=== PATIENT | male | born 1960 | race Caucasian/White ===

== ENCOUNTER 2021-01-28 17:23 | Emergency (ER) | payer OTHER, SELFPAY ==
[2021-01-28] VITALS (7 sets, daily range): BP systolic 123–172; BP diastolic 82–108; PULSE 74–80; RESP 16–21; TEMP 36.5–36.7; O2SAT 95–98
--- NOTE | ~2021-01-28 | CT_ITS ---
EXAMINATION: CT brain wo con EXAM DATE: 01/28/2021 17:56 INDICATION: Headache. Ringing in ears. Nosebleed last week. TECHNIQUE: Spiral CT of the head was performed without contrast. Axial, coronal and sagittal images were reviewed. The dose-length product (DLP) for this examination was 681.00 mGy-cm. The exposure w as tailored according to patient size, and iterative reconstruction (ASIR) was used as additional dos e reduction technique. There is no prior study for comparison. FINDINGS: There is no acute intraparenchymal hemorrhage. No evidence of intraparenchymal brain mass lesion. No evidence of acute infarction. There is no mass effect or midline shift. The ventricles are normal in size. There are no extra-axial collections. There are no acute calvarial fractures. T he orbits are unremarkable. Soft tissue is unremarkable. The visualized sinuses and mastoid air chente ls are well aerated. IMPRESSION: 1. No acute intracranial findings. Reviewed, dictated and finalized at [facility]. WORKER
--- NOTE | 2021-01-28 17:34 | ECG_ITS ---
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
--- NOTE | 2021-01-28 17:36 | ED.HA ---
HPI - Headache General Chief Complaint: Headache Stated Complaint: headache - htn Time Seen by Provider: 01/28/21 17:32 Source: patient Mode of arrival: ambulatory Limitations: no limitations History of Present Illness HPI Narrative: Patient is a 60-year-old male complaining of a headache, top of my head , 5 out of 10, dull, nonradiating accompanied by elevated blood pressure started today. Pt states that when his checked his bp at home it was 180/100's , denies any h/o HTN. Patient denies any speech or visual disturbance, focal weakness or numbness, unsteady gait, neck pain or stiffness, chest pain, shortness of breath, abdominal pain, nausea, vomiting, diarrhea, fever, or chills. Related Data Allergies Allergy/AdvReac Type Severity Reaction Status Date / Time methylprednisolone Allergy Unknown Unknown Verified 01/28/21 18:31 Penicillins Allergy Unknown Unknown Verified 01/28/21 18:31 Review of Systems Review of Systems: All systems reviewed & are unremarkable except as noted in HPI and below Constitutional: Constitutional: Denies body ache(s), Denies chills, Denies excessive sweating, Denies fatigue, Denies fever(s), Denies headache(s), Denies lethargy, Denies malaise, Denies weakness and Denies weight loss Eyes: Eyes: Denies blurry vision, Denies change in vision and Denies loss of vision ENT: Denies dizziness, Denies ear discharge, Denies lip swelling, Denies epistaxis, Denies nasal congestion, Denies neck pain, Denies throat swelling and Denies tongue swelling Cardiovascular: Cardiovascular: Denies chest pain, Denies chest pain at rest, Denies chest pain with activity, Denies diaphoresis, Denies rapid heart rate, Denies edema, Denies irregular heart rhythm, Denies lightheadedness, Denies palpitations, Denies dyspnea and Denies dyspnea on exertion Respiratory: Respiratory: Denies chest congestion, Denies cough, Denies hemoptysis, Denies dyspnea and Denies dyspnea on exertion Gastrointestinal: Gastrointestinal: Denies abdominal pain, Denies melena, Denies hematochezia, Denies diarrhea, Denies nausea, Denies vomiting and Denies hematemesis Musculoskeletal: Musculoskeletal: Denies abnormal gait, Denies deformity, Denies joint swelling, Denies limited range of motion, Denies neck pain and Denies numbness Neurologic: Denies Abnormal speech present, Denies abnormal gait, Denies confusion, Denies dizziness, Denies focal weakness, Denies loss of vision, Denies numbness, Denies Other visual disturbances, Denies Sensory deficit (Neuro) and Denies weakness Psychiatric: Psychiatric: Denies confusion, Denies depression, Denies auditory hallucinations, Denies homicidal ideation and Denies suicidal ideation Endocrine: Endocrine: Denies cold intolerance, Denies excessive sweating, Denies fatigue, Denies heat intolerance and Denies palpitations Hematologic/Lymphatic: Hematologic/Lymphatic: Denies easy bleeding and Denies easy bruising Allergic/Immunologic: Allergic/Immunologic: Denies lip swelling, Denies throat swelling and Denies tongue swelling PMFSH Family History Family History Mother Family history of chronic obstructive pulmonary disease Father Carcinoma of colon Family history of malignant neoplasm of esophagus Other Diabetes mellitus Family history of coronary artery disease Social History Social History Smoking status: Never smoker Exam Const: General: cooperative, healthy appearing, comfortable, no acute distress, well developed, alert and awake; No confusion Orientation/consciousness: oriented to person, oriented to place, oriented to time, patient oriented x3 and No confusion Limitations: no limitations HENMT: Head: normal to inspection, normocephalic and atraumatic Ears: hearing grossly normal bilaterally, TM normal on the right and TM normal on the left General nose exam: Normal external nose present,
[2021-01-28 17:57] LABS: Basophils Percent Auto 0.7 % (0.2-1.2); Eosinophils Absolute Auto 0.4 K/mm3 (0-0.3); Eosinophils Percent Auto 6.3 % (0-4.4); Hematocrit 44.6 % (42.0-52.0); Hemoglobin 15.5 g/dL (14.0-18.0); Immature Granulocyte Absolute 0.01 K/mm3 (0.00-0.031); Immature Granulocyte Percent A 0.2 % (0-0.5); Lymphocytes Absolute Auto 1.28 K/mm3 (0.9-3.2); Lymphocytes Percent Auto 23.1 % (18.3-44.2); Mean Corpuscular HGB Conc 34.8 g/dl (32-36); Mean Corpuscular Hemoglobin 30.9 pg (26-34); Mean Corpuscular Volume 88.8 fl (80-100); Mean Platelet Volume 10.2 fl (7.4-10.4); Monocytes Absolute Auto 0.7 K/mm3 (0.1-0.6); Monocytes Percent Auto 12.1 % (2.6-8.5); Neutrophils Absolute Auto 3.2 K/mm3 (1.3-6.7); Neutrophils Percent Auto 57.6 % (45.5-73.1); Platelet Count Result 193 k/mm3 (150-375); Red Blood Count 5.02 M/mm3 (4.6-6.20); Red Cell Distribution Width 12.2 % (11.5-14.5); White Blood Count 5.5 K/mm3 (4.5-10.0)
[2021-01-28 18:09] LABS: Alanine Aminotransferase 23 U/L (4-50); Albumin Level 3.9 g/dL (3.5-5.1); Alkaline Phosphatase 68 U/L (38-126); Anion Gap 4 mmol/L (8-16); Aspartate Amino Transferase 28 U/L (17-59); Bilirubin,Total 0.6 mg/dL (0.2-1.3); Blood Urea Nitrogen 18 mg/dL (9-20); Calcium 8.4 mg/dL (8.4-10.2); Carbon Dioxide 30 mmol/L (22-30); Chloride 104 mmol/L (98-107); Estimated CRCL calculation 116 ml/min; Estimated Glomerular Filt Rate > 60; Glucose 100 mg/dL (75-110); Potassium 4.2 mmol/L (3.4-5.0); Sodium 138 mmol/L (137-145)
--- NOTE | 2021-01-28 18:15 | PC.NURSE ---
Pt states upon return from CT that his headache is gone at present time. Continue to monitor BP, preparing to give meds po for htn.
[2021-01-28] MEDS: LABETALOL HCL INJ 100 MG/20 ML VIAL 20 MG IV PUSH (18:19)
[2021-01-28 18:21] LABS: Troponin I < 0.012 ng/mL (0.000-0.034)
--- NOTE | 2021-01-28 19:17 | PC.NURSE ---
Report to KARY Calderon, to continue care.
== END 2021-01-28 19:48 | disposition home or self-care (01) ==
PROVIDERS: Emergency Provider Emergency Medicine; PCP Family Medicine
DX: I16.0 Hypertensive urgency (principal); R94.31 Abnormal electrocardiogram [ECG] [EKG]
CPT/HCPCS: 36415; 70450; 80053; 84484; 85025; 93005; 96374; 99284

== ENCOUNTER 2021-03-10 15:06 | Emergency (ER) | payer OTHER, SELFPAY ==
--- NOTE | ~2021-03-10 | CT_ITS ---
EXAMINATION: CT abdomen pelvis w con DATE: 03/10/2021 19:06 INDICATION: Left lower quadrant pain TECHNIQUE: Computed tomography (CT) of the abdomen and pelvis was performed with 100 cc Omnipaque 350 intravenous contrast. Automated exposure control and iterative reconstruction technique were employe d. Exam dose: 1377.25 mGy-cm total exam DLP. COMPARISON: None. FINDINGS: The lung bases are clear of infiltrate or consolidation. Normal heart size. No pericardial or pleural effusion. Small sliding hiatal hernia. No hepatic space-occupying mass lesion. The gallbladder is present. No gallbladder wall thickening or pericholecystic fluid or fat stranding. No bile duct dilatation. No pancreatic mass lesion, calcific ation or ductal dilatation. Normal splenic size. Normal morphology of the adrenal glands. Exophytic posterior mid 2.4 cm right renal cyst. Upper pole left renal scarring. 4 mm lateral lower pole left renal cyst. No urinary tract calculus or hydroureteronephrosis. There is nonspecific moderate diffuse thickening of the urinary bladder wall may be due to underdistention. Mild prostate enlargement, prostate calcifications. Small bilateral fat-containing inguinal hernias. Normal caliber of the abdominal aorta. No intraperitoneal or retroperitoneal or pelvic mass lesion or adenopathy or ascites is evident. 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 No evidence of appendicitis. No bowel obstruction, bowel wall thickening, pneumatosis. No intraperitonea l free air. There is prominent degenerative disc disease L4-5 and L5-S1. No suspicious osteolytic or osteoblastic lesions. 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 Reviewed, dictated and finalized at [facility]. 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
[2021-03-10 15:17] VITALS: BP 110/78; PULSE 107; RESP 20; TEMP 36.4; O2SAT 97
[2021-03-10 15:28] LABS: Basophils Absolute Auto 0.1 K/mm3 (0.0-0.1); Basophils Percent Auto 0.7 % (0.2-1.2); Eosinophils Absolute Auto 7.9 K/mm3 (0-0.3); Eosinophils Percent Auto 45.2 % (0-4.4); Hematocrit 48.4 % (42.0-52.0); Hemoglobin 17.4 g/dL (14.0-18.0); Immature Granulocyte Absolute 0.09 K/mm3 (0.00-0.031); Immature Granulocyte Percent A 0.5 % (0-0.5); Lymphocytes Percent Auto 12.6 % (18.3-44.2); Mean Corpuscular Hemoglobin 31.5 pg (26-34); Mean Corpuscular Volume 87.5 fl (80-100); Mean Platelet Volume 10.5 fl (7.4-10.4); Monocytes Percent Auto 5.7 % (2.6-8.5); Neutrophils Absolute Auto 6.2 K/mm3 (1.3-6.7); Neutrophils Percent Auto 35.3 % (45.5-73.1); Platelet Count Result 213 k/mm3 (150-375); Red Blood Count 5.53 M/mm3 (4.6-6.20); Red Cell Distribution Width 12.3 % (11.5-14.5); White Blood Count 17.5 K/mm3 (4.5-10.0)
[2021-03-10 15:38] LABS: Potassium 4.1 mmol/L (3.4-5.0)
[2021-03-10 15:45] LABS: Alanine Aminotransferase 41 U/L (4-50); Albumin Level 4.7 g/dL (3.5-5.1); Alkaline Phosphatase 119 U/L (38-126); Anion Gap 11 mmol/L (8-16); Aspartate Amino Transferase 36 U/L (17-59); Bilirubin,Total 0.8 mg/dL (0.2-1.3); Blood Urea Nitrogen 23 mg/dL (9-20); Calcium 9.5 mg/dL (8.4-10.2); Carbon Dioxide 21 mmol/L (22-30); Chloride 101 mmol/L (98-107); Estimated CRCL calculation 70 ml/min; Estimated Glomerular Filt Rate 52; Glucose 90 mg/dL (75-110); Lipase 111 U/L (23-300); Sodium 133 mmol/L (137-145)
--- NOTE | 2021-03-10 18:39 | ED.GENADULT ---
HPI - General Adult General Chief complaint: Nausea/Vomiting/Diarrhea Stated complaint: diarrhea x8 days Time Seen by Provider: 03/10/21 18:28 Source: patient Mode of arrival: ambulatory Limitations: no limitations History of Present Illness HPI narrative: Patient is a 60-year-old male who presents to emergency department for evaluation of diarrhea and abdominal pain for over a week began after eating fast food patient notes up to 10-12 loose stools per day denies rectal bleeding or melena or similar occurrence in the past patient 3 days ago had Cipro and Flagyl called in by his primary care but has not started taking them patient has some aching pain in the left lower abdomen and on arrival does not appear distressed Related Data Allergies Allergy/AdvReac Type Severity Reaction Status Date / Time methylprednisolone Allergy Unknown Unknown Verified 03/10/21 18:28 Penicillins Allergy Unknown Unknown Verified 03/10/21 18:28 Review of Systems Review of Systems: All systems reviewed & are unremarkable except as noted in HPI and below PMFSH Past Medical History Medical History BMI 39.0-39.9,adult Chronic neck pain Colon cancer screening Diarrhea Encounter for prostate cancer screening Encounter for wellness examination in adult Essential (primary) hypertension Gastroenteritis Hypertension Mixed hyperlipidemia Testicular pain, left Surgical History Surgical History H/O hernia repair (~04/13/15) Family History Family History (Updated 02/16/21 @ 14:08 by Melissa Clay MA) Mother Family history of chronic obstructive pulmonary disease Father Carcinoma of colon Family history of malignant neoplasm of esophagus Sibling , 47 y/o Brain aneurysm Other Diabetes mellitus Family history of coronary artery disease Social History Social History Smoking status: Never smoker Alcohol intake: current Drinks per week: 6 Substance use: former Substance use type: marijuana Exam Narrative: Exam Narrative: GENERAL: Well-appearing, obese, and in no acute distress. HEAD: Normocephalic, atraumatic. EYES: PERRLA and EOMI. ENT: Nares clear, no rhinorrhea or epistaxis. Mucous membranes moist. CHEST: Clear to auscultation. No respiratory distress. No wheezes rales or rhonchi HEART: Regular rate and rhythm. No murmur heard. Normal peripheral pulses. ABDOMEN: Soft, left lower quadrant tenderness to palpation no rebound or guarding, nondistended EXTREMITIES: Normal range of motion. No edema. SKIN: Warm, dry, no rash. NEURO: No focal deficits. Alert and oriented x3. PSYCH: Normal mood and affect. Course Course Emergency Course: Patient evaluated for diarrhea had stool cultures performed advised to take the antibiotics his primary care prescribed as recommended by primary care will also be given GI referral patient was given 2 L of fluids in the emergency department for hydration given instructions on hydrating and will be discharged home at this time with follow-up with primary care and gastroenterology will be swabbed for Covid as well patient aware of his findings treatment plan agrees with this and will also return if symptoms worsen and was provided with reasons to return Consultations Consultation #1: Discussed case with Dr. Sifuentes who will follow patient in clinic agrees with GI referral and Covid testing and would like the patient to take his prescribed medications in the meantime as we wait for results Date: 03/10/21 Time: 20:23 Vital Signs Vital signs: Vital Signs Temperature 97.6 F 03/10/21 15:17 Pulse Rate 107 H 03/10/21 15:17 Respiratory Rate 20 03/10/21 15:17 Blood Pressure 110/78 03/10/21 15:17 Pulse Oximetry 97 03/10/21 15:17 Temperature 97.6 F 03/10/21 15:17 Pulse Rate 107 H 03/10/21 15:17 Respir
[2021-03-10] MEDS: SODIUM CHLORIDE 0.9% IV 1,000 ML 999 ML IV CONT ×2 (18:51→20:08)
[2021-03-10] MEDS: FAMOTIDINE 20 MG/2 ML VIAL IV PUSH (18:53)
--- NOTE | 2021-03-10 18:57 | PC.NURSE ---
Pt to CT via stretcher at this time.
[2021-03-10] MEDS: HYOSCYAMINE SULFATE 0.125 MG TABLET PO (19:24)
[2021-03-10 19:31] LABS: Add Urine Microscopic? YES; Appearance Urine Cloudy (Clear); Bilirubin Urine Negative (Negative); Blood Urine Negative (Negative); Color Urine Yellow (Yellow); Glucose Urine UA Negative (Negative); Ketones Urine Trace mg/dL (Negative); Leukocyte Esterase Ur 1+ LEU/UL (Negative); Mucus Urine Rare /lpf; Nitrate Urine Negative (Negative); Protein Urine 1+ mg/dL (Negative); RBC Urine 0-2 /hpf (0-2); Specific Grav Ur 1.012 (1.001-1.035); Urobilinogen Urine Negative mg/dL (<2.0); WBC Urine 0-3 /hpf
--- NOTE | 2021-03-10 19:32 | PC.NURSE ---
Assumed care of pt. at this time. Report from KARY Fung
--- NOTE | 2021-03-10 20:00 | PC.NURSE ---
pt. to bathroom to provide stool sample.
--- NOTE | 2021-03-10 20:10 | PC.NURSE ---
pt. stool specimen walked to lab
[2021-03-10 21:05] VITALS: BP 136/91; PULSE 86; RESP 20; O2SAT 100
[2021-03-11 17:42] LABS: SARS-CoV-2 RNA PCR Negative
== END 2021-03-10 21:05 | disposition home or self-care (01) ==
PROVIDERS: Emergency Medicine Emergency Medical Services; Emergency Provider Emergency Medicine; PCP Family Medicine
DX: R19.7 Diarrhea, unspecified (principal); Z20.822 Contact with and (suspected) exposure to COVID-19; I10 Essential (primary) hypertension; E78.2 Mixed hyperlipidemia; K44.9 Diaphragmatic hernia without obstruction or gangrene; N28.1 Cyst of kidney, acquired; K40.90 Unilateral inguinal hernia, without obstruction or gangrene, not specified as recurrent; N40.0 Benign prostatic hyperplasia without lower urinary tract symptoms; Q43.3 Congenital malformations of intestinal fixation
CPT/HCPCS: 36415; 74177; 80053; 81001; 83690; 85025; 87045; 87046; 87324; 87427; 96361; 96365; 96375; 99284; A9270; C9803; J0131; J7030; Q9967; U0003; U0005

== ENCOUNTER → 2021-04-05 02:30 | Outpatient (CLI) | payer OTHER, SELFPAY ==
[2021-04-05 19:19] LABS: SARS-CoV-2 RNA PCR Negative
== END ==
PROVIDERS: PCP Family Medicine; Visit Provider Internal Medicine Gastroenterology
DX: Z01.812 Encounter for preprocedural laboratory examination (principal); Z20.822 Contact with and (suspected) exposure to COVID-19
CPT/HCPCS: C9803; U0003; U0005

== ENCOUNTER 2021-04-08 00:21 | Day surgery (SDC) | payer OTHER, SELFPAY ==
[2021-03-31 11:40] VITALS: BMI 39.3
[2021-04-08 09:00] VITALS: BP 114/88; PULSE 79; RESP 18; TEMP 36.2; O2SAT 96; BMI 37.3
--- NOTE | 2021-04-08 09:05 | WPDANESEPPF ---
Anes - Initial Pre Proc Eval Procedure: Operation Date: 04/08/21 10:15 Proposed Procedures p Colonoscopy - Fran Rhodes MD Date/Time: 04/08/21 09:05 Surgeon: Fran Rhodes MD Pre Op Diagnosis: diarrhea Patient Data Age: 60 Gender: M Height: 5 ft 11 in Weight: 121.3 kg Last Vital Signs Temp 36.2 C L 04/08/21 09:00 Pulse 79 04/08/21 09:00 Resp 18 04/08/21 09:00 BP 114/88 04/08/21 09:00 Pulse Ox 96 04/08/21 09:00 Allergies Allergy/AdvReac Type Severity Reaction Status Date / Time methylprednisolone Allergy Severe Unknown Verified 04/08/21 08:58 Penicillins Allergy Other Verified 04/08/21 09:03 Home Medications Medication Instructions Recorded Confirmed Type lisinopril 20 mg tablet 20 mg PO DAILY #30 tablet 02/16/21 04/08/21 Rx Saccharomyces boulardii [Florastor] 250 mg PO BID 03/31/21 04/08/21 History mv-mn no.31-uxjna-onzns-lutein 1 tablet PO DAILY 03/31/21 04/08/21 History [Neovite] Patient hx anesthesia problems: none Family hx anesthesia problems: none PMFSH Past Medical History Medical History BMI 39.0-39.9,adult Chronic neck pain Colon cancer screening Diarrhea Encounter for prostate cancer screening Encounter for wellness examination in adult Essential (primary) hypertension Gastroenteritis Hypertension Mixed hyperlipidemia Testicular pain, left Surgical History Surgical History H/O hernia repair (~04/13/15) Family History Family History Mother Family history of chronic obstructive pulmonary disease Father Carcinoma of colon Family history of malignant neoplasm of esophagus Sibling , 47 y/o Brain aneurysm Other Diabetes mellitus Family history of coronary artery disease Social History Social History Smoking status: Never smoker Alcohol intake: current Drinks per week: 6 Substance use: former Substance use type: marijuana Living arrangements: with family Spiritual care concerns: No Anes - Eval Final PreProcedure Day of Procedure 04/08/21 09:05 Patient weight: obese Heart: regular rate and rhythm Lungs: clear to auscultation Airway: Mallampati scale class II Neurological: alert and oriented Last oral intake: >/= 8 hours ASA classification: III Emergent: no Anesthetic plan: proceed Anesthesia type and monitoring: general GIVS and standard monitoring Informed Consent: The patient's anesthetic plan and its attendant risks and benefits were discussed with the patient/family/POA. Questions were solicited and answers provided to the satisfaction of the patient/family/POA.
[2021-04-08] MEDS: LACTATED RINGERS 1,000 ML 150 ML IV CONT (09:09)
--- NOTE | 2021-04-08 10:00 | WPDGICN ---
Assessment and Plan Assessment and plan (1) Diarrhea: Code(s): R19.7 - Diarrhea, unspecified Status: Acute Assessment and Plan: Patient complains of ongoing diarrhea which may represent postinfectious irritable bowel syndrome. Agree with probiotics. We will add fiber to his diet region. Colonoscopy to exclude organic disease is advised. Further recommendations will be given after endoscopy. 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 That is should be noted in his history. GI Consult Note Consult date/time: 04/08/21 10:00 HPI: Tate Woods is a 60 year old male Presents for colonoscopy to evaluate diarrhea. Patient reports abrupt onset of diarrhea that began March 02 after travel. He describes rather profuse watery stools. He was treated with several rounds of broad-spectrum antibiotics. Diarrhea however persisted but to a lesser degree. Recently seen by PA in the GI office period and started on probiotics. Patient has noticed improved diarrhea stool periods now he will have formed stools and perhaps watery stool every 3rd day. He denies any bleeding. Denies any abdominal pain. He denies any weight loss. Patient reports last colonoscopy for screening purposes 5 years ago was unremarkable. 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 His family history is significant that his father had metastatic cancer of uncertain primary apparently tumor was involving both the chest the esophagus and intra-abdominal areas when identified. Primary site was never determined. Review of Systems Review of Systems: All systems reviewed & are unremarkable except as noted in HPI and below PMFSH Past Medical History Medical History BMI 39.0-39.9,adult Chronic neck pain Colon cancer screening Diarrhea Encounter for prostate cancer screening Encounter for wellness examination in adult Essential (primary) hypertension Gastroenteritis Hypertension Mixed hyperlipidemia Testicular pain, left Surgical History Surgical History H/O hernia repair (~04/13/15) Family History Family History Mother Family history of chronic obstructive pulmonary disease Father Carcinoma of colon Family history of malignant neoplasm of esophagus Sibling , 47 y/o Brain aneurysm Other Diabetes mellitus Family history of coronary artery disease Social History Social History Smoking status: Never smoker Alcohol intake: current Drinks per week: 6 Substance use: former Substance use type: marijuana Living arrangements: with family Spiritual care concerns: No Meds Home Medications and Allergies Home Medications Medication Instructions Recorded Confirmed Type lisinopril 20 mg tablet 20 mg PO DAILY #30 tablet 02/16/21 04/08/21 Rx Saccharomyces boulardii [Florastor] 250 mg PO BID 03/31/21 04/08/21 History mv-mn no.77-jmpbf-gesul-lutein 1 tablet PO DAILY 03/31/21 04/08/21 History [Neovite] Allergies Allergy/AdvReac Type Severity Reaction Status Date / Time methylprednisolone Allergy Severe Unknown Verified 04/08/21 08:58 Penicillins Allergy Other Verified 04/08/21 09:03 Vital Signs Vital Signs - 24 hr 04/08/21 09:00 Temperature 97.1 F L Pulse Rate 79 Respiratory Rate 18 Blood Pressure 114/88 Pulse Oximetry 96 Exam Narrative: Exam Narrative: Physical exam reveals patient be alert. Vital signs stable. HEENT exam is unremarkable. Patient is anicteric. Lungs are clear to auscultation and percussion. Heart is without murmur or extra sounds. Abdominal exam bowel sounds are present soft nontender with no hepatosplenomegaly. Digital external rectal exam is normal.
[2021-04-08 10:35] VITALS: BP 107/68; PULSE 74; RESP 16; O2SAT 97
[2021-04-08 10:45] VITALS: BP 115/69; PULSE 71; RESP 16; O2SAT 98
[2021-04-08 10:54] VITALS: BP 116/77; PULSE 68; RESP 16; O2SAT 98
== END 2021-04-08 11:03 | disposition home or self-care (01) ==
PROVIDERS: PCP Family Medicine; Visit Provider Internal Medicine Gastroenterology
PROC: 0DJD8ZZ Inspection of Lower Intestinal Tract, Via Natural or Artificial Opening Endoscopic (ICD-10-PCS; CPT 45378; principal; 2021-04-08 10:15)
DX: R19.7 Diarrhea, unspecified (principal); K64.8 Other hemorrhoids; I10 Essential (primary) hypertension; E78.2 Mixed hyperlipidemia; E66.9 Obesity, unspecified; Z68.37 Body mass index [BMI] 37.0-37.9, adult
CPT/HCPCS: 45380; 88305; C9803; J2704; J7120; U0003; U0005

== ENCOUNTER 2021-07-28 01:39 | Day surgery (SDC) | payer BC, SELFPAY ==
[2021-07-20 11:59] VITALS: BMI 37.3
[2021-07-28 10:09] VITALS: BP 134/94; PULSE 67; RESP 20; TEMP 36.2; O2SAT 99; BMI 36.3
--- NOTE | 2021-07-28 10:19 | WPDGICN ---
Assessment and Plan Assessment and plan (1) Epigastric abdominal pain: Code(s): R10.13 - Epigastric pain Status: Acute Assessment and Plan: Patient complains of epigastric pain today. Plan is for EGD to assess more thoroughly. He has occasionally describe dysphagia but this is less consistent. Further recommendations will be given after endoscopy. GI Consult Note Consult date/time: 07/28/21 10:19 HPI: Tate Woods is a 61 year old male Presents for EGD. Patient complains of left upper quadrant pain. It is somewhat worse on drinking cold drinks. Occurs intermittently. He states his previous diarrhea is improved on adding fiber to his diet. Advise any bleeding. He recently has had 20lb weight loss. He reports this because he has been eating more salads. Family history noncontributory. Patient presents for EGD because of persistent left upper quadrant pain. At the present time he denies any specific difficulty swallowing. Review of Systems Review of Systems: All systems reviewed & are unremarkable except as noted in HPI and below PMFSH Past Medical History Medical History (Updated 07/28/21 @ 10:20 by Fran Rhodes MD) BMI 37.0-37.9, adult BMI 39.0-39.9,adult Chronic neck pain Colon cancer screening Normal colonoscopy 04/08/2021 for evaluation of diarrhea Diarrhea Dysphagia (~07/08/21) Encounter for prostate cancer screening Encounter for wellness examination in adult Eosinophilia Essential (primary) hypertension Gastroenteritis Hypertension Mixed hyperlipidemia Testicular pain, left Surgical History Surgical History H/O hernia repair (~04/13/15) Family History Family History Mother Family history of chronic obstructive pulmonary disease Father Carcinoma of colon Family history of malignant neoplasm of esophagus Sibling , 47 y/o Brain aneurysm Other Diabetes mellitus Family history of coronary artery disease Social History Social History Smoking status: Never smoker Alcohol intake: current Drinks per week: 4 Alcohol use details: Beer Substance use: former Substance use type: marijuana Living arrangements: alone Spiritual care concerns: No Meds Home Medications and Allergies Home Medications Medication Instructions Recorded Confirmed Type lisinopril 20 mg tablet 20 mg PO DAILY #30 tablet 02/16/21 07/20/21 Rx Saccharomyces boulardii [Florastor] 250 mg PO BID 03/31/21 07/20/21 History mv-mn no.30-kzert-qoyyi-lutein 1 tablet PO DAILY 03/31/21 07/20/21 History [Neovite] calcium polycarbophil [FiberCon] 1,250 mg PO DAILY 07/20/21 07/20/21 History Allergies Allergy/AdvReac Type Severity Reaction Status Date / Time methylprednisolone Allergy Severe Unknown Verified 07/28/21 10:08 Penicillins Allergy Other Verified 07/28/21 10:08 Vital Signs Vital Signs - 24 hr 07/28/21 10:09 Temperature 97.1 F L Pulse Rate 67 Respiratory Rate 20 Blood Pressure 134/94 H Pulse Oximetry 99 Exam Narrative: Physical exam reveals patient be alert. Vital signs are stable. HEENT exam is unremarkable. Lungs are clear to auscultation and percussion. Heart is without murmur or extra sounds. Abdominal exam Is mildly obese. bowel sounds are present soft nontender with no organomegaly.
[2021-07-28] MEDS: LACTATED RINGERS 1,000 ML 150 ML IV CONT (10:24)
--- NOTE | 2021-07-28 10:30 | WPDANESEPPF ---
Anes - Initial Pre Proc Eval Procedure: Operation Date: 07/28/21 11:00 Proposed Procedures p Esophagogastroduodenoscopy - Fran Rhodes MD Date/Time: 07/28/21 10:30 Surgeon: Fran Rhodes MD Pre Op Diagnosis: R13.10 Dysphagia Patient Data Age: 61 Gender: M Height: 1.83 m Weight: 121.6 kg Last Vital Signs Temp 97.1 F L 07/28/21 10:09 Pulse 67 07/28/21 10:09 Resp 20 07/28/21 10:09 BP 134/94 H 07/28/21 10:09 Pulse Ox 99 07/28/21 10:09 Allergies Allergy/AdvReac Type Severity Reaction Status Date / Time methylprednisolone Allergy Severe Unknown Verified 07/28/21 10:08 Penicillins Allergy Other Verified 07/28/21 10:08 Home Medications Medication Instructions Recorded Confirmed Type lisinopril 20 mg tablet 20 mg PO DAILY #30 tablet 02/16/21 07/20/21 Rx Saccharomyces boulardii [Florastor] 250 mg PO BID 03/31/21 07/20/21 History mv-mn no.76-ezsyl-ozbba-lutein 1 tablet PO DAILY 03/31/21 07/20/21 History [Neovite] calcium polycarbophil [FiberCon] 1,250 mg PO DAILY 07/20/21 07/20/21 History Patient hx anesthesia problems: none Family hx anesthesia problems: none PMFSH Past Medical History Medical History (Updated 07/28/21 @ 10:20 by Fran Rhodes MD) BMI 37.0-37.9, adult BMI 39.0-39.9,adult Chronic neck pain Colon cancer screening Normal colonoscopy 04/08/2021 for evaluation of diarrhea Diarrhea Dysphagia (~07/08/21) Encounter for prostate cancer screening Encounter for wellness examination in adult Eosinophilia Essential (primary) hypertension Gastroenteritis Hypertension Mixed hyperlipidemia Testicular pain, left Surgical History Surgical History H/O hernia repair (~04/13/15) Family History Family History Mother Family history of chronic obstructive pulmonary disease Father Carcinoma of colon Family history of malignant neoplasm of esophagus Sibling , 47 y/o Brain aneurysm Other Diabetes mellitus Family history of coronary artery disease Social History Social History Smoking status: Never smoker Alcohol intake: current Drinks per week: 4 Alcohol use details: Beer Substance use: former Substance use type: marijuana Living arrangements: alone Spiritual care concerns: No Anes - Eval Final PreProcedure Day of Procedure 07/28/21 10:30 Patient weight: obese Heart: regular rate and rhythm Lungs: clear to auscultation Airway: Mallampati scale class II Neurological: alert and oriented Last oral intake: >/= 8 hours ASA classification: III Emergent: no Anesthetic plan: proceed Anesthesia type and monitoring: general GIVS and standard monitoring Informed Consent: The patient's anesthetic plan and its attendant risks and benefits were discussed with the patient/family/POA. Questions were solicited and answers provided to the satisfaction of the patient/family/POA.
[2021-07-28] MEDS: BENZOCAINE (*SP) 60 ML SPRAY CAN (HURRICAINE) 1 SPRAY MUCOUS MEM (10:59)
[2021-07-28 11:07] VITALS: BP 136/93; PULSE 65; RESP 20; O2SAT 100
[2021-07-28 11:17] VITALS: BP 125/84; PULSE 62; RESP 20; O2SAT 100
[2021-07-28 11:27] VITALS: BP 141/97; PULSE 66; RESP 20; O2SAT 99
== END 2021-07-28 11:47 | disposition home or self-care (01) ==
PROVIDERS: PCP Family Medicine; Visit Provider Internal Medicine Gastroenterology
PROC: 0DJ08ZZ Inspection of Upper Intestinal Tract, Via Natural or Artificial Opening Endoscopic (ICD-10-PCS; CPT 43235; principal; 2021-07-28 11:00)
DX: R10.12 Left upper quadrant pain (principal); R10.13 Epigastric pain; R13.10 Dysphagia, unspecified; I10 Essential (primary) hypertension; E78.2 Mixed hyperlipidemia; E66.9 Obesity, unspecified; Z68.36 Body mass index [BMI] 36.0-36.9, adult
CPT/HCPCS: 43239; 87081; J2704; J7120

== ENCOUNTER 2021-08-12 11:58 | Outpatient (RCR) | payer BC, SELFPAY ==
[2021-08-12] MEDS: diphenhydrAMINE HCl CAP 25 MG CAPSULE PO (12:10)
[2021-08-12] MEDS: ACETAMINOPHEN 325 MG TABLET 650 MG PO (12:10)
[2021-08-12] MEDS: FAMOTIDINE 20 MG TABLET PO (12:11)
[2021-08-12 12:26] VITALS: BP 125/81; PULSE 72; RESP 20; TEMP 36.4; O2SAT 98
[2021-08-12 13:48] VITALS: BP 126/82; PULSE 63; RESP 16; TEMP 36.1; O2SAT 98
--- NOTE | 2021-08-13 08:32 | PC.NURSE ---
pt was called for check in after covid infusion 08/12, pt stated he was feeling much better and had no complaints or concerns
== END 2021-08-12 15:17 | disposition home or self-care (01) ==
LOC: AMCINF 11:58
PROVIDERS: PCP Family Medicine; Referring Provider Family Medicine; Visit Provider Internal Medicine Hematology & Oncology
DX: Z23 Encounter for immunization (principal); U07.1 COVID-19; I10 Essential (primary) hypertension
CPT/HCPCS: A9270; J7050; M0243

== ENCOUNTER → 2022-08-30 13:57 | Outpatient (CLI) | payer BC, SELFPAY ==
--- NOTE | ~2022-08-30 | XR_ITS ---
XR hip RT 2V w AP pelvis 08/30/2022 14:12 Indication: Right hip pain after fall Procedure: 4 views of the right hip including AP pelvis Comparison: No prior studies for comparison. Findings: Pelvic rings are intact. Sacral foramen are symmetric. There is lower lumbar spondylosis. N o fracture or traumatic malalignment. No focal soft tissue abnormality. No foreign bodies. Impression: 1: No acute fracture. Reviewed, dictated and finalized at location A. Impression: 1: No acute fracture.
== END ==
PROVIDERS: PCP Family Medicine; Visit Provider Family Medicine
DX: M25.551 Pain in right hip (principal)
CPT/HCPCS: 73502

== ENCOUNTER → 2023-04-19 12:09 | Outpatient (CLI) | payer BC, SELFPAY ==
--- NOTE | ~2023-04-19 | XR_ITS ---
AP view of the pelvis and AP and lateral views of the right hip Clinical history: Pain Findings: No acute fracture or dislocation is seen. Osseous alignment is anatomic. Bilateral hip and SI joint spaces are preserved. Soft tissues are unremarkable. Impression: No significant abnormality is seen. Reviewed, dictated and finalized at [facility]. Impression: No significant abnormality is seen.
--- NOTE | ~2023-04-19 | XR_ITS ---
Cervical Spine: AP, lateral, open-mouth views Clinical History: Pain Findings: The normal lordotic curve is maintained. No fracture identified. 3 mm anterolisthesis of C4 over C5 present. There is mild degenerative disc narrowing throughout cervical spine. There is moder ate facet arthropathy at C4-C5 and C5-C6. Pre-vertebral soft tissues are unremarkable. Impression: [id number]-[id number] degenerative spondylosis, as above. 3 mm anterolisthesis of C4 over C5. Reviewed, dictated and finalized at [facility]. Impression: [id number] degenerative spondylosis, as above. 3 mm anterolisthesis of C4 over C5.
== END ==
PROVIDERS: PCP Family Medicine; Visit Provider Family Medicine
DX: M25.551 Pain in right hip (principal); G89.29 Other chronic pain; M47.892 Other spondylosis, cervical region
CPT/HCPCS: 72050; 73502

== ENCOUNTER 2023-05-24 14:30 | Outpatient (CLI) | payer BC, SELFPAY | END 2023-05-24 14:31 | disposition home or self-care (01) | PROVIDERS: PCP Family Medicine; Visit Provider Otolaryngology | DX: H93.11 Tinnitus, right ear (principal); H90.3 Sensorineural hearing loss, bilateral | CPT/HCPCS: 92557; 92567 ==

== ENCOUNTER 2024-05-23 19:43 | Emergency (ER) | payer OTHER, BC, SELFPAY ==
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
[2024-05-23 19:52] VITALS: BP 128/86; PULSE 96; RESP 16; TEMP 36.9; O2SAT 97
[2024-05-23] MEDS: ONDANSETRON INJ 4 MG/2 ML VIAL IV PUSH (21:51)
[2024-05-23] MEDS: MORPHINE SULFATE (*CRX) 4 MG/ML INJ IV PUSH (21:51)
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
[2024-05-23 21:58] LABS: Basophils Percent Auto 0.5 % (0.2-1.2); Eosinophils Absolute Auto 0.1 K/mm3 (0-0.3); Eosinophils Percent Auto 1.6 % (0-4.4); Hematocrit 42.1 % (42.0-52.0); Hemoglobin 14.6 g/dL (14.0-18.0); Immature Granulocyte Absolute 0.02 K/mm3 (0.00-0.031); Immature Granulocyte Percent A 0.3 % (0-0.5); Lymphocytes Absolute Auto 1.37 K/mm3 (0.9-3.2); Mean Corpuscular HGB Conc 34.7 g/dl (32-36); Mean Corpuscular Hemoglobin 30.9 pg (26-34); Mean Platelet Volume 10.7 fl (7.4-10.4); Monocytes Absolute Auto 0.9 K/mm3 (0.1-0.6); Monocytes Percent Auto 11.4 % (2.6-8.5); Neutrophils Absolute Auto 5.2 K/mm3 (1.3-6.7); Neutrophils Percent Auto 68.2 % (45.5-73.1); Platelet Count Result 204 k/mm3 (150-375); Red Blood Count 4.73 M/mm3 (4.6-6.20); White Blood Count 7.6 K/mm3 (4.5-10.0)
[2024-05-23 22:08] LABS: Alanine Aminotransferase 29 U/L (6-50); Albumin Level 4.2 g/dL (3.5-5.1); Alkaline Phosphatase 75 U/L (38-126); Anion Gap 6 mmol/L (4-12); Aspartate Amino Transferase 42 U/L (17-59); Blood Urea Nitrogen 19 mg/dL (9-20); Calcium 8.7 mg/dL (8.4-10.2); Carbon Dioxide 26 mmol/L (22-30); Chloride 107 mmol/L (98-107); Estimated CRCL calculation 94 ml/min; Estimated Glomerular Filt Rate > 60; Glucose 103 mg/dL (65-110); Potassium 3.7 mmol/L (3.4-5.0); Sodium 139 mmol/L (137-145)
[2024-05-23] MEDS: TETANUS,DIPHTHERIA,AC PERTUSSIS ADULT (0.5 ML) BOOSTRIX IM (22:42)
[2024-05-23 22:55] VITALS: BP 124/73; PULSE 79; RESP 17; O2SAT 96
[2024-05-24] MEDS: KETOROLAC 30 MG/ML VIAL (*BKC) IV PUSH (00:54)
[2024-05-24] MEDS: methocarbamoL 500 MG TABLET 1000 MG PO (00:54)
[2024-05-24] MEDS: ACETAMINOPHEN 500 MG TABLET 1000 MG PO (00:54)
== END 2024-05-24 01:05 | disposition home or self-care (01) ==
PROVIDERS: Emergency Provider Physician Assistant; PCP Family Medicine
DX: S00.03XA Contusion of scalp, initial encounter (principal); S00.01XA Abrasion of scalp, initial encounter; S20.212A Contusion of left front wall of thorax, initial encounter; S16.1XXA Strain of muscle, fascia and tendon at neck level, initial encounter; S46.912A Strain of unspecified muscle, fascia and tendon at shoulder and upper arm level, left arm, initial encounter; N28.89 Other specified disorders of kidney and ureter; Z23 Encounter for immunization; I10 Essential (primary) hypertension; E78.2 Mixed hyperlipidemia; E66.01 Morbid (severe) obesity due to excess calories; Z68.41 Body mass index [BMI] 40.0-44.9, adult; Z86.16 Personal history of COVID-19; Z79.899 Other long term (current) drug therapy; V68.5XXA Driver of heavy transport vehicle injured in noncollision transport accident in traffic accident, initial encounter
CPT/HCPCS: 36415; 70450; 71260; 72125; 72129; 72132; 73030; 74177; 80053; 85025; 90471; 90715; 96374; 96375; 99284; A4565; A9270; J1885; J2270; J2405; Q9967

== ENCOUNTER 2024-06-12 07:53 | Outpatient (CLI) | payer BC, SELFPAY ==
--- NOTE | ~2024-06-12 | MR_ITS ---
MRI of the abdomen: Clinical indication: Left renal mass. Technique: Coronal SSFSE ARC, WATER:coronal LAVA-FLEX, Coronal 2D FIESTA FatSat, Axial SSFSE BH ARC, Axial 3D DualEcho BH, Axial SSFSE-IR, Axial DWI b=500, Axial 2D FIESTA FatSat, pre and dynamic postco ntrast Axial LAVA ARC, postcontrast Coronal In and Opposed phase LAVA FLEX. Following intravenous adm inistration of 20 cc MultiHance gadolinium, T1-weighted fat-sat imaging was performed in the axial an d coronal planes. COMPARISON: CT scan dated 05/23/2024 Findings: Gallbladder is unremarkable. The common bile duct is normal in course and caliber. No filli ng defects are seen within the CBD. No evidence of intrahepatic biliary ductal dilatation. The pancre atic duct is normal in size. There is a 5.0 x 4.5 cm heterogeneous left renal mass, with solid and cystic components, and heteroge neous postcontrast enhancement of the solid components, compatible with renal cell carcinoma. Simple exophytic right renal cyst present. Liver, spleen, pancreas, and adrenal glands appear normal. The aorta and the paraaortic regions appea r normal. Impression: 5.0 x 4.5 cm heterogeneously enhancing mixed solid and cystic left renal mass, most consistent with r enal cell carcinoma. Appropriate oncologic follow-up recommended. Reviewed, dictated and finalized at location . Impression: 5.0 x 4.5 cm heterogeneously enhancing mixed solid and cystic left renal mass, most consistent with renal cell carcinoma. Appropriate oncologic follow-up r ecommended.
== END 2024-06-12 07:54 | disposition home or self-care (01) ==
PROVIDERS: PCP Family Medicine; Visit Provider Family Medicine
DX: N28.89 Other specified disorders of kidney and ureter (principal)
CPT/HCPCS: 74183; A9577

== ENCOUNTER → 2024-08-26 12:04 | Outpatient (CLI) | payer BC, SELFPAY ==
--- NOTE | ~2024-08-26 | XR_ITS ---
Left Shoulder Technique: AP and scapular Y views were obtained. Clinical History: Pain Findings: No fracture or dislocation is seen. Osseous alignment is anatomic. The glenohumeral joint i s intact. Moderate AC joint degenerative change present. Soft tissues are unremarkable. Impression: Moderate AC joint degenerative change. Reviewed, dictated and finalized at [facility]. Impression: Moderate AC joint degenerative change.
== END ==
PROVIDERS: PCP Nurse Practitioner Family; Visit Provider Nurse Practitioner Family
DX: M19.012 Primary osteoarthritis, left shoulder (principal)
CPT/HCPCS: 73030

== ENCOUNTER 2024-11-25 12:52 | Outpatient (CLI) | payer BC, SELFPAY ==
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
== END 2024-11-25 12:53 | disposition home or self-care (01) ==
PROVIDERS: PCP Physician Assistant Surgical; Visit Provider Physician Assistant Surgical
DX: M75.122 Complete rotator cuff tear or rupture of left shoulder, not specified as traumatic (principal); S46.212A Strain of muscle, fascia and tendon of other parts of biceps, left arm, initial encounter; M94.212 Chondromalacia, left shoulder; M19.012 Primary osteoarthritis, left shoulder; M25.412 Effusion, left shoulder; M75.52 Bursitis of left shoulder; X58.XXXA Exposure to other specified factors, initial encounter
CPT/HCPCS: 73221

== ENCOUNTER 2025-04-22 06:35 | Outpatient (CLI) | payer BC, SELFPAY ==
--- NOTE | ~2025-04-22 | MR_ITS ---
MRI of the abdomen: Clinical indication: Left renal cell carcinoma. Technique: Coronal SSFSE ARC, WATER:coronal LAVA-FLEX, Coronal 2D FIESTA FatSat, Axial SSFSE BH ARC, Axial 3D DualEcho BH, Axial SSFSE-IR, Axial DWI b=500, Axial 2D FIESTA FatSat, pre and dynamic postco ntrast Axial LAVA ARC, postcontrast Coronal In and Opposed phase LAVA FLEX. Following intravenous adm inistration of 20 cc MultiHance gadolinium, T1-weighted fat-sat imaging was performed in the axial an d coronal planes. COMPARISON: 06/12/2024 Findings: Gallbladder unremarkable. The common bile duct is normal in course and caliber. No filling defects are seen within the CBD. No evidence of intrahepatic biliary ductal dilatation. The pancreati c duct is normal in size. Status post left nephrectomy. Simple right lower pole renal cyst present. Liver, spleen, pancreas, and adrenal glands appear normal. The aorta and the paraaortic regions appea r normal. Impression: No evidence of metastatic disease. Status post left nephrectomy. Reviewed, dictated and finalized at location . Impression: No evidence of metastatic disease. Status post left nephrectomy.
--- OUTSIDE RECORDS SUMMARY | 2025-04-22 06:47 | XMS_ITS | Clinical Summary ---
Author Organization [facility] Address [address] [place] [address] Care Team Providers Care Natural Resources Technician Name Role Phone Unavailable Primary Care Provider Unavailabl e Source Comments [facility],non-owned Affiliates and Associated Physician Practices is amultiple site organization consisting of ambulatory clinics and hospital sitesin [place], [place], [place] and [place]. This disclosure is being madepursuant to the Care Everywhere program and may not contain all information available regarding this patient. Last updated 18.[facility] Allergies No known active allergies Medications * Be aware that medications may not be up to date on this document. Alwaysverify current medications with the patient. 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 Gender Identity Not on file Sexual Orientation Not on file Last Filed Vital Signs Vital Sign Reading Time Taken Comments Blood Pressure 134/90 04/26/2018 11:44 AM CDT Pulse 90 04/26/2018 11:44 AM CDT Temperature 36.8 C (98.3 F) 04/26/2018 11:44 AM CDT Respiratory Rate - - Oxygen Saturation - - Inhaled Oxygen Concentration - - Weight 131.5 kg (290 lb) 04/26/2018 11:44 AM CDT Height 180.3 cm (5' 11 ) 04/26/2018 11:44 AM CDT Body Mass Index 40.45 04/26/2018 11:44 AM CDT Plan of Treatment Health Maintenance Due Date Last Done Comments COLOGUARD (AGES 45-75) - COL ON CA SCREENING 1960 COLON MONITORING 1960 COLONOSCOPY - COLON CA SCREENING 1960 CT COLONOGRAPHY - COLON CA SCREENING 1960 Colorectal Cancer Screening 1960 FIT - COLON CA SCREENING 1960 FLEX SIG - COLON CA SCREENING 1960 LIPID TESTING 1960 HIV SCREENING 1975 HEPATITIS C SCREENING 06/19/1978 DTAP/TDAP/TD VACCINES (1 - Tdap) 1979 PNEUMOCOCCAL VACCINE 50+ (1 of 1 - PCV) 2010 ZOSTER VACCINE (1 of 2) 2010 SCREENING FOR DIABETES 04/26/2018 COVID-19 VACCINE (1 - 2023-2 5 season) 2024 DEPRESSION SCREENING 11/27/2024 INFLUENZA VACCINE (Season Ended) 2025 Respiratory Syncytial Virus (RSV) Vaccine Pt: or over 60 yrs (1 - 1-dose 75+ series) 2035 HEPATITIS B VACCINE Aged Out No longe r eligible based on patient's age to complete this topic HIB VACCINE Aged Out No longer eligi ble based on patient's age to complete this topic HPV VACCINE Aged Out No longer eligi ble based on patient's age to complete this topic MENINGOCOCCAL (Group B) VACC INE SHARED DECISION-MAKING Aged Out No longer eligibl e based on patient's age to complete this topic MENINGOCOCCAL GROUPS A/C/Y/W VACCINE Aged Out No longer eligible b ased on patient's age to complete this topic Insurance [facility]
--- OUTSIDE RECORDS SUMMARY | 2025-04-22 06:47 | XMS_ITS | Clinical Summary ---
Author Organization [facility] Address [address] [place] [address] Phone Care Team Providers Care Biofuels Manager Name Role Phone Jordy Sifuentes MD Primary Care Provider [phone] Allergies Active Allergy Reactions Criticality Noted Date Comments Penicillins Unknown 01/30/2022 Pt stated he is unsure of this allergy. Medications lisinopril (PRINIVIL, ZESTRIL) 20 MG Tablet Take 20 mg by mouth daily. 02/20/2021 Active predniSONE (DELTASONE) 10 MG TabletIndication s:Bronchitis Take 4 tab PO daily x 2 days, 3 tab PO daily x 2 days, 2 tab PO daily x 2 day, 1 tab PO daily x 2 days. 20 Tablet 01/30/2022 Active promethazine-dex tromethorphan (PROMETHAZINE-DM ) 6.25-15 MG/5ML SyrupIndications :Bronchitis Take 5 mL by mouth every 4 hours as needed for Cough. 240 mL 01/30/2022 Active Active Problems No known active problems Social History Tobacco Use Types Packs/Day Years Used Date Smoking Tobacco: Never Smokeless Tobacco: Never Sex and Gender Information Value Date Recorded Sex Assigned at Not on file Legal Sex Male 10:42 PM CDT Gender Identity Not on file Sexual Orientation Not on file Last Filed Vital Signs Vital Sign Reading Time Taken Comments Blood Pressure 144/72 01/30/2022 8:38 AM SALES SUPPORT REP Pulse 95 01/30/2022 8:38 AM SALES SUPPORT REP Temperature 36.5 C (97.7 F) 01/30/2022 8:38 AM SALES SUPPORT REP Respiratory Rate 20 01/30/2022 8:38 AM SALES SUPPORT REP Oxygen Saturation 97% 01/30/2022 8:38 AM SALES SUPPORT REP Inhaled Oxygen Concentration - - Weight 129.3 kg (285 lb) 01/30/2022 8:38 AM SALES SUPPORT REP Height - - Body Mass Index - - Plan of Treatment Health Maintenance Due Date Last Done Comments Hepatitis C Virus (HCV) Screening 1960 TdaP Immunization 1960 Colonoscopy 2005 Colorectal Cancer Screening 2005 Cologuard 2010 Immunochemical Fecal Occult Blood 2010 Pneumococcal Immunization (5 0+ years) (1 of 1 - PCV) 2010 Zoster Immunization (1 of 2) 2010 Influenza Immunization (#1) 2024 SARS-COV-2 Immunization ( season) 2024 05/09/2021, 04/18/2021 Respiratory Syncytial Virus (RSV) Immunization (Adult) (1 - 1-dose 75+ series) 2035 Hepatitis B Immunization Aged Out No longer eligible based on patient's age to complete this topic Meningococcal Immunization (ACWY) Aged Out No longer eligible b ased on patient's age to complete this topic Rotavirus Immunization Aged Out No lo nger eligible based on patient's age to complete this topic Insurance [facility] Care Teams Biofuels Manager Relationship Specialty Start Date End Date Jordy Sifuentes MD [address] [place] [address] PCP - General Family Medicine 01/30/22
--- OUTSIDE RECORDS SUMMARY | 2025-04-22 06:47 | XMS_ITS | Clinical Summary ---
Author Organization [facility] [place] [facility] Address [address] [place] [address] Care Team Providers Care Lieutenant General Name Role Phone Jordy Sifuentes MD Primary Care Provider [phone] Robert Ba MD Unavailable [phone]- [phone] Allergies Active Allergy Reactions Criticality Noted Date Comments Penicillins Medications polycarbophil (FIBERCON) 625 mg tablet Take 1 tablet (625 mg total) by mouth every morning Active Bifidobacterium infantis (ALIGN) 4 mg capsule Take 1 capsule (4 mg total) by mouth every morning Active ascorbic acid (vitamin C) 1,000 mg tablet Take 1 tablet (1,000 mg total) by mouth every morning Active UNABLE TO FIND every morning Ricardo Vitin -multivitamin Active lisinopriL (PRINIVIL,ZESTRI L) 30 mg tablet Take 1 tablet (30 mg total) by mouth every morning Active loratadine (CLARITIN) 10 mg tablet Take 1 tablet (10 mg total) by mouth every morning Active amLODIPine (NORVASC) 5 mg tablet Take 1 tablet (5 mg total) by mouth daily 30 tablet 4 Active polyethylene glycol (MIRALAX) 17 gram/dose bulk powderIndication s:constipation Take 17 g by mouth daily for 14 days 238 g 4 Active albuterol HFA (PROVENTIL HFA,VENTOLIN HFA,PROAIR HFA) 90 mcg/actuation inhalerIndicatio ns:Shortness of breath Inhale 2 puffs every 4 (four) hours as needed for wheezing or shortness of breath 18 g 5 Active inhalational spacing device (Aerochamber MV) spacerIndication s:Shortness of breath Use with albuterol inhaler 1 each 5 Active lidocaine viscous (XYLOCAINE) 2 % solutionIndicati ons:Viral URI with cough Apply 10 mL to the mouth or throat every 4 (four) hours as needed (Sore throat) Swish & spit 200 mL 5 Active benzonatate (TESSALON) 200 mg capsuleIndicatio ns:Lower respiratory infection Take 1 capsule (200 mg total) by mouth 3 (three) times a day as needed for cough 30 capsule 5 Active Active Problems Problem Noted Date Diagnosed Date Kidney mass 06/28/2024 Surgical History Surgery Date Site/Laterality Comments HERNIA REPAIR Medical History Medical History Date Comments Hypertension Social History Tobacco Use Types Packs/Day Years Used Date Smoking Tobacco: Never Smokeless Tobacco: Never Tobacco Cessation:Counseling Given: Not Answered Alcohol Use Standard Drinks/Week Comments Yes 0 (1 standard drink = 0.6 oz pur e alcohol) ADTZities Answer Date Recorded In the past 12 months has [employer], gas, oil, or water [employer] threatened to shut off services in your home? No 08/01/2024 Social Connection and Isolat ion Panel [NHANES] Answer Date Recorded In a typical week, how many times do you talk on the phone with family, friends, or neighbors? More than three times a week 08/01/2024 How often do you get togethe r with friends or relatives? More than three times a week 08/01/2024 How often do you attend [facility] or mandaeism services? Never 08/01/2024 Do you belong to any clubs o r organizations such as shinto groups, unions, fraternal or athletic groups, or school groups? No 08/01/2024 How often do you attend meet ings of the clubs or organizations you belong to? Never 08/01/2024 Are you , , di vorced, , never , or living with a partner? 08/01/2024 AUDIT-C Answer Date Recorded Q1: How often do you have a drink containing alc ohol? 2-4 times a month 07/22/2024 Q2: How many drinks containi ng alcohol do you have on a typical day when you are drinking? 5 or 6 07/22/2024 Q3: How often do you have si x or more drinks on one occasion? Monthly 07/22/2024 Overall Financial Resource Strain (CARDIA) Answe r Date Recorded How hard is it for you to pa y for the very basics like food, housing, medical care, and heating? Not hard at all 08/01/2024 Hunger Vital Sign Answer Date Recorded Within the past 12 months, y ou worried that your food would run out before you got the money to buy more. Never true 08/01/20 24 Within the past 12 months, t he food you bought just didn't last and you didn't have money to get more. Never true 08/01/2024 PRAPARE - Transportation Answer Date Re corded In the past 12 months, has l ack of transportation kept you from medical appointments or from getting medications? No 03/2024 In the past 12 months, has l ack of transportation kept you from meetings, work, or from getting things needed for daily living? No 08/01/2024 Housing Stability Vital Sign Answer Francisco e Recorded In the last 12 months, was t here a time when you were not able to pay the mortgage or rent on time? No 08/01/2024 In the past 12 months, how m any times have you moved where you were living? 0 08/01/2024 At any time in the past 12 m [facility], were you homeless or living in a jail (including now)? No 08/01/2024 Personal Safety Answer Date Recorded Have you ever been in or are you currently in a harmful physical or emotional relationship or is someone making you feel afraid or unsafe? Denies 07/30/2024 Sex and Gender Information Value Date Recorded Sex Assigned at Not on file Legal Sex Male 11:31 AM AIR BRUSH ARTIST Gender Identity Not on file Sexual Orientation Not on file Obstetrics History Last Filed Vital Signs Vital Sign Reading Time Taken Comments Blood Pressure 138/78 01/11/2025 8:10 AM AIR BRUSH ARTIST Pulse 105 01/11/2025 8:10 AM AIR BRUSH ARTIST Temperature 36.9 C (98.4 F) 01/11/2025 8:10 AM AIR BRUSH ARTIST Respiratory Rate 18 01/11/2025 8:10 AM AIR BRUSH ARTIST Oxygen Saturation 97% 01/11/2025 8:10 AM AIR BRUSH ARTIST Inhaled Oxygen Concentration - - Weight 122.9 kg (271 lb) 01/11/2025 8:10 AM AIR BRUSH ARTIST Height 180.3 cm (5' 11 ) 01/11/2025 8:10 AM AIR BRUSH ARTIST Body Mass Index 37.8 01/11/2025 8:10 AM AIR BRUSH ARTIST Plan of Treatment Health Maintenance Due Date Last Done Comments Colon Cancer Screening-Colonoscopy 1960 Depression Screening 1960 Hepatitis C Screening 1960 Prostate Cancer Screening-PSA 1960 DTaP/Tdap/Td Vaccine (1 - Tdap) 1971 Hepatitis B Screening 1978 Regular Well Visit/Exam 18-64 1978 Zoster Vaccine (1 of 2) 2010 Covid-19 Vaccine (3 - 2023-2 5 season) 2024 05/09/2021, 04/18/2021 Influenza Vaccine (Season Ended) 2025 Pneumococcal vaccine <65 Aged Out No longer eligible based on patient's age to complete this topic Insurance [employer] P21 [place] [employer] [place] [facility] Advance Directives For more information, please contact: [phone] * Full Code (Latest Code Status on File) Date Activated Date Inactivated Comments 07/30/2024 4:47 PM 08/02/2024 7:03 PM Care Teams Lieutenant General Relationship Specialty Start Date End Date Jordy Sifuentes MD [address] [address] PCP - General Family Medicine 07/30/24 [place] [address] [place] [id number] Consulting Physician Urology 08/02/24
--- OUTSIDE RECORDS SUMMARY | 2025-04-22 06:47 | XMS_ITS | Referral Summary ---
Author Organization [facility] [place] [facility] Address [address] [place] [address] Care Team Providers Care Forming Department Supervisor Name Role Phone Jordy Sifuentes MD Primary Care Provider [phone] Robert Ba MD Unavailable [phone]- [phone] Allergies Active Allergy Reactions Criticality Noted Date [...] Noted Date Diagnosed Date Kidney mass 06/28/2024 Social History Tobacco Use Types Packs/Day Years Used Date Smoking Tobacco: Never Smokeless Tobacco: Never Tobacco Cessation:Counseling Given: Not Answered Alcohol Use Standard Drinks/Week Comments Yes 0 (1 standard drink = 0.6 oz pur e alcohol) VideoStep Answer Date Recorded In the past 12 months has [employer], [employer], or water [employer] threatened to shut off services in your [...] week 08/01/2024 How often do you attend [facility] or synagogue services? Never 08/01/2024 Do you belong to any clubs o r organizations such as baptism groups, unions, fraternal or athletic groups, or [...] any time in the past 12 m [facility], were you homeless or living in a alf (including now)? No 08/01/2024 Personal Safety Answer Date Recorded Have you ever been in or are you currently in a harmful physical or emotional relationship or is someone making you feel afraid or unsafe? Denies 07/30/2024 Sex and Gender Information Value Date Recorded Sex Assigned at Not on file Legal Sex Male 11:31 AM DRAFTER ELECTROMECHANICAL Gender Identity Not on file Sexual Orientation Not on file Last Filed Vital Signs Vital Sign Reading Time Taken Comments Blood Pressure 138/78 01/11/2025 8:10 AM DRAFTER ELECTROMECHANICAL Pulse 105 01/11/2025 8:10 AM DRAFTER ELECTROMECHANICAL Temperature 36.9 C (98.4 F) 01/11/2025 8:10 AM DRAFTER ELECTROMECHANICAL Respiratory Rate 18 01/11/2025 8:10 AM DRAFTER ELECTROMECHANICAL Oxygen Saturation 97% 01/11/2025 8:10 AM DRAFTER ELECTROMECHANICAL Inhaled Oxygen Concentration - - Weight 122.9 kg (271 lb) 01/11/2025 8:10 AM DRAFTER ELECTROMECHANICAL Height 180.3 cm (5' 11 ) 01/11/2025 8:10 AM DRAFTER ELECTROMECHANICAL Body Mass Index 37.8 01/11/2025 8:10 AM DRAFTER ELECTROMECHANICAL Plan of Treatment Not on file [place] Advance Directives For more information, please contact: [phone] * Full Code (Latest Code Status on File) Date Activated Date Inactivated Comments 07/30/2024 4:47 PM 08/02/2024 7:03 PM Care Teams Forming Department Supervisor Relationship Specialty Start Date End Date Jordy Sifuentes MD [address] [address] PCP - General Family Medicine 07/30/24 [place] [address] [place] [address] Consulting Physician Urology 08/02/24
== END 2025-04-22 06:36 | disposition home or self-care (01) ==
PROVIDERS: PCP Nurse Practitioner Family; Visit Provider Urology
DX: C64.2 Malignant neoplasm of left kidney, except renal pelvis (principal); Z90.5 Acquired absence of kidney; N28.1 Cyst of kidney, acquired
CPT/HCPCS: 74183; A9577

== ENCOUNTER 2025-09-23 11:33 | Emergency (ER) | payer OTHER, SELFPAY ==
--- NOTE | ~2025-09-23 | CT_ITS ---
EXAMINATION: CT chest abdomen pelvis wo con DATE: 09/23/2025 12:45 INDICATION: Right lower rib pain. Trauma. TECHNIQUE: Computed tomography (CT) of the chest, abdomen, and pelvis was performed without intravenous contrast. Automated exposure control and iterative reconstruction technique were employed. The dose-length product was 1913.28 mGy-cm. COMPARISON: CT 05/23/2024 FINDINGS: CHEST CT: The lungs demonstrate minimal atelectasis. A calcified left lung nodule and calcified left hilar lymph nodes are consistent with old granulomatous disease. No pleural effusion. The heart size is normal. No pericardial effusion. There is moderate thoracic spondylosis. There is mild chronic anterior wedging of multiple vertebral bodies. ABDOMEN/PELVIS CT: The liver, gallbladder, pancreas, adrenal glands, and spleen are normal. There is a 3.8 cm cyst in right kidney. 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 There is diverticulosis of the colon without evidence of diverticulitis. There are no dilated loops of bowel. The appendix is normal. Bowel malrotation is noted. There are no pathologically enlarged lymph nodes. There is no free intraperitoneal fluid. There is severe lower lumbar spondylosis. There is mild chronic anterior wedging of L1 vertebral body. IMPRESSION: 1. No acute rib fracture. 2. Bowel malrotation. Reviewed, dictated and finalized at location E.
--- NOTE | ~2025-09-23 | XR_ITS ---
EXAMINATION: XR hand RT min 3V DATE: 09/23/2025 12:50 INDICATION: Right hand injury TECHNIQUE: Posteroanterior, oblique and lateral views of the right hand were obtained. COMPARISON: None. FINDINGS: Mild mallet finger deformity of the fourth digit with prominent osseous excrescence at the dorsal base of the distal phalanx which could be related to an old avulsion fracture healed some residual distraction or heterotopic ossification related to prior tendon with avulsion. Alignment is otherwise norm al. No acute fracture. Polyarticular osteoarthritis, mild to moderate severity at the first carpometacarpal, first metacarpophalangeal and second, fourth and fifth distal interphalangeal joints and mild at the midcarpal, triscaphe and many of the remaining interphalangeal joints with distal predominance. Diffuse soft tissue swelling about the hand. IMPRESSION: 1. No acute osseous abnormality. 2. Right fourth digit mallet finger deformity change of likely chronic avulsion injury at the dorsal base of the distal phalanx. 3. Mild to moderate polyarticular osteoarthritis. Reviewed, dictated and finalized at location A.
[2025-09-23 12:15] VITALS: BP 140/94; PULSE 60; RESP 16; TEMP 36.4; O2SAT 98
--- NOTE | 2025-09-23 12:16 | ED.GENADULT ---
HPI - General Adult General Chief complaint: Fall Stated complaint: fell at work 09/16/25 I think I cracked a rib Time Seen by Provider: 09/23/25 11:39 History of Present Illness HPI narrative: 65-year-old male present to the emergency department for evaluation for right-sided rib pain. Patient had a ground level fall approximately 1 week ago. Patient did strike his head but had no loss of consciousness. Patient did have some right hand pain and right rib pain. Patient states the hand pain has improved he is still having persistent right sided rib pain. Patient states pain is worse with deep inspiration, coughing and movement. Related Data Home Medications ?Medication ?Instructions ?Recorded ?Confirmed ?Last Taken ?Type multivit-min 67-folic acid 1 1 tablet PO DAILY 03/31/21 06/18/25 07/26/21 History mg-alpha lipoic 100 mg-lutein 1 mg tablet (Neovite) calcium polycarbophil 625 mg 1,250 mg PO DAILY 07/20/21 06/18/25 07/26/21 History tablet (FiberCon) Allergies Allergy/AdvReac Type Severity Reaction Status Date / Time methylprednisolone Allergy Severe Unknown Verified 09/23/25 12:35 Penicillins Allergy Other Verified 09/23/25 12:35 Review of Systems Review of Systems: All systems reviewed & are unremarkable except as noted in HPI and below PMFSH Past Medical History Medical History (Updated 09/23/25 @ 14:08 by Anders Delgado MD) Chronic low back pain with right-sided sciatica CT of the abdomen pelvis revealed degenerative disc disease at L4-L5 and L5-S1 on 03/10/2021. COVID-19 (08/09/21) fully vaccinated, exposure to son with COVID on 08/07/2021 and COVID positive 08/10/2021 Left shoulder pain Renal mass, left (~05/24/24) Left nephrectomy 07/30/2024. 4.9 cm heterogeneously enhancing mass suspicious for renal cell carcinoma, midpole left kidney on CT 05/24/2024, ER. MRI of the kidneys on 06/12/2024 with 5 cm mass left kidney consistent with renal cell carcinoma. Referral to urologist. Elevated PSA, less than 10 ng/ml (10/09/23) PSA elevated at 4.47 on 10/09/2023. PSA 4.3 on 05/28/2024. PSA elevated at 5.9 with 7% free PSA on 06/18/2025. Protein in urine (03/10/21) 1+ protein on urinalysis 03/10/2021. Trace protein on 10/09/2023. Urinalysis normal 05/28/2024. Urinalysis normal on 06/18/2025. Open follicle comedo (~2022) midline upper back Bilateral chronic knee pain Decreased hearing of right ear Tinnitus of right ear (~02/2023) Chronic left hip pain X-ray of both hips and pelvis unremarkable 04/19/2023. Acute non-recurrent maxillary sinusitis Obesity (BMI 30-39.9) Seasonal allergic rhinitis Elevated high sensitivity C-reactive protein elevated at 6.4 on 08/23/2022. Chronic pain of right hip X-ray of both hips and pelvis was normal 04/19/2023. BMI 38.0-38.9,adult COVID-19 (~11/23/21) tested positive 11/28/2021 2nd episode of COVID Epigastric abdominal pain Dysphagia (~07/08/21) BMI 37.0-37.9, adult Eosinophilia Gastroenteritis Diarrhea Chronic neck pain X-ray of the cervical spine on 04/19/2023 revealed qplo-sl-tydwhous degenerative spondylosis and facet arthritis worse at C4-C5 and C5-C6. Encounter for wellness examination in adult Testicular pain, left Colon cancer screening Normal colonoscopy 04/08/2021 for evaluation of diarrhea Encounter for prostate cancer screening PSA 3.1 on 07/07/2021. PSA 3.05 on 08/23/2022. PSA elevated at 4.47 on 10/09/2023. BMI 39.0-39.9,adult Mixed hyperlipidemia total cholesterol 211, triglycerides 240, HDL 50, LDL 122 on 07/07/2021. total cholesterol 180, HDL 45, triglycerides 137, LDL 110 On 08/23/2022. Cholesterol 139, triglycerides 91, HDL 44, LDL 78 with ratio of 3.2 on 10/09/2023. cholesterol 210, triglycerides 163, HDL 48, LDL 132 with ratio 4.4 on 06/18/2025. Essential (primary) hypertension Hypertension Surgical History Surgical History History of kidney removal Hx kidney cancer H/O hernia repair (~04/13/15) Family History Family History Mother Family history of chronic obstructive pulmonary disease Diabetes mellitus Father Carcinoma of colon Family history of malignant neoplasm of esophagus Sibling , 47 y/o Brain aneurysm Other Family history of coronary artery disease Social History Social History Smoking status: Never smoker Alcohol intake: current Drinks per week: 4 Alcohol use details: Beer Substance use: former Substance use type: marijuana Lack of Transportation: No Lack of Food: Never True Current Housing: I Have Housing Concerned About Future Housing: No Difficulty Paying Gas/Electric Bills: No Difficulty Paying for Meds: No Currently Unemployed: No Education: High School Diploma/GED Difficulty w/ Childcare or Family Care: No Living arrangements: alone Spiritual care concerns: No Exam Narrative: APPEARANCE: Well appearing, no pain, no distress, well-nourished. HEAD: normocephalic, atraumatic. EYES: PERRLA/EOMI, conjunctivae clear. NOSE: Normal no drainage EARS:TMS clear with good light reflex. THROAT: Pharynx clear, no exudate. NECK: Supple. No adenopathy, no masses. RESPIRATORY: Airway patent, respirations nonlabored. Clear to auscultation bilaterally, no rales, rhonchi, wheezing. CARDIOVASCULAR: Regular rate and rhythm without murmurs rubs or gallops. ABDOMINAL: Soft, nontender, nondistended, normal bowel sounds MUSCULOSKELETAL: Right lateral rib tenderness to palpation, tenderness to right hand/wrist NEURO: Alert. Cranial nerves II through XII intact. SKIN: Warm, dry. Normal Color Course Vital Signs Vital signs: Vital Signs Temperature 97.5 F L 09/23/25 12:15 Pulse Rate 60 09/23/25 12:15 Respiratory Rate 16 09/23/25 12:15 Blood Pressure 140/94 H 09/23/25 12:15 Pulse Oximetry 98 09/23/25 12:15 Oxygen Delivery Room Air 09/23/25 12:15 Temperature 97.5 F L 09/23/25 12:15 Pulse Rate 60 09/23/25 12:15 Respiratory Rate 16 09/23/25 12:15 Blood Pressure 140/94 H 09/23/25 12:15 Pulse Oximetry 98 09/23/25 12:15 Oxygen Delivery Room Air 09/23/25 12:15 Medical Decision Making MDM Narrative Medical decision making narrative: 65-year-old male present emergency department for evaluation for right-sided rib pain. Patient does have tenderness to right lower ribs. Patient has no tenderness to his abdomen but patient does report pain that radiates to his abdomen. CT chest was ordered to evaluate for rib fracture and intra-abdominal pathology. X-ray was also ordered due to proximal hand and wrist tenderness. X-ray was negative for acute fracture of the hand. CT chest abdomen pelvis showed no rib fractures or acute pathology. I do suspect patient has a rib contusion. Patient is provided medication for pain control in addition to an incentive spirometer. No evidence of pulmonary contusion, pulmonary embolism or pneumonia. Patient was up to the results of the workup and plan for treatment for home. All questions concerns were addressed. Differential Diagnosis Differential Diagnosis: Rib fracture, rib contusion, pulmonary contusion, intra-abdominal injury Vital Signs Vital Signs: Vital Signs Temperature 97.5 F L 09/23/25 12:15 Pulse Rate 60 09/23/25 12:15 Respiratory Rate 16 09/23/25 12:15 Blood Pressure 140/94 H 09/23/25 12:15 Pulse Oximetry 98 09/23/25 12:15 Oxygen Delivery Room Air 09/23/25 12:15 Temperature 97.5 F L 09/23/25 12:15 Pulse Rate 60 09/23/25 12:15 Respiratory Rate 16 09/23/25 12:15 Blood Pressure 140/94 H 09/23/25 12:15 Pulse Oximetry 98 09/23/25 12:15 Oxygen Delivery Room Air 09/23/25 12:15 Lab Data Lab results reviewed: Yes I reviewed the patient's lab results. Imaging Data Radiologist's impression: Impressions Hand X-Ray 09/23/25 12:56 IMPRESSION: 1. No acute osseous abnormality. 2. Right fourth digit mallet finger deformity change of likely chronic avulsion injury at the dorsal base of the distal phalanx. 3. Mild to moderate polyarticular osteoarthritis. Chest/Abdomen/Pelvis CT 09/23/25 13:03 IMPRESSION: 1. No acute rib fracture. 2. Bowel malrotation. Discharge Plan Discharge Clinical Impression: Contusion of rib Patient Disposition: Home Condition: Stable Instructions: Antibiotic Form, How to Use an Incentive Spirometer (ED), Rib Contusion (ED) Additional Instructions: [place] for pain control. Flexeril for muscle spasm. Incentive spirometer as directed. Have close follow-up with your primary care physician. If you have any worsening symptoms please call or return to the emergency department. Patient Language: Turkish Prescriptions: New hydrocodone-acetaminophen 5-325 mg tablet 1 tablet PO Q12H PRN (Reason: pain) Qty: 14 0RF cyclobenzaprine 10 mg tablet 10 mg PO BID PRN (Reason: muscle spasm) Qty: 14 0RF No Action lisinopril 40 mg tablet 40 mg PO DAILY Qty: 90 3RF loratadine [Claritin] 10 mg tablet 10 mg PO . q.a.m. PRN (Reason: allergic symptoms) Qty: 90 3RF Neovite 1-100-1 mg Tablet 1 tablet PO DAILY calcium polycarbophil [FiberCon] 625 mg Tablet 1,250 mg PO DAILY meloxicam 15 mg tablet 15 mg PO DAILY PRN (Reason: pain) Qty: 30 11RF atorvastatin [Lipitor] 40 mg tablet 40 mg PO QHS Qty: 30 11RF Follow-up/Referrals: Jordy Sifuentes MD [Primary Care Provider, Family Practice]
[2025-09-23] MEDS: KETOROLAC 30 MG/ML VIAL (*BKC) IM (12:24)
[2025-09-23] MEDS: CYCLOBENZAPRINE HCL 10 MG TABLET PO (12:24)
--- NOTE | 2025-09-23 12:41 | PCRCNOTE ---
patient in xray
--- OUTSIDE RECORDS SUMMARY | 2025-09-23 13:40 | XMS_ITS | Clinical Summary ---
Author Organization [facility] Address [address] [place] [address] Care Team Providers Care Water Treatment Plant Mechanic Name Role Phone Unavailable Primary Care Provider Unavailabl e Source Comments [facility],non-owned Affiliates and Associated Physician Practices is amultiple site organization consisting of ambulatory clinics and hospital sitesin [place], [place], [place] and [place]. This disclosure is being madepursuant to the Care Everywhere program and may not contain all information available regarding this patient. Last updated 18.[facility] Allergies No known active allergies Medications * [...] on file Legal Sex Male 5:52 AM COMMISSIONER CONSERVATION OF RESOURCES Gender Identity Not on file Sexual Orientation [...] 11:44 AM CDT Height 180.3 cm (5' 11) 04/26/2018 11:44 AM CDT Body Mass Index [...] of 2) 2010 SCREENING FOR DIABETES 04/26/2018 DEPRESSION SCREENING 11/27/2024 COVID-19 VACCINE (1 - 2023-2 5 season) 2025 INFLUENZA VACCINE (#1) 2025 Respiratory Syncytial Virus (RSV) Vaccine Pt: [...] patient's age to complete this topic Insurance [facility]
--- OUTSIDE RECORDS SUMMARY | 2025-09-23 13:40 | XMS_ITS | Clinical Summary ---
Author Organization [facility] Address [address] [place] [address] Phone Care Team Providers Care Certified Professional Controller Name Role Phone Jordy Sifuentes MD Primary Care Provider [phone] Allergies Active Allergy Reactions Criticality Noted Date [...] Comments Blood Pressure 144/72 01/30/2022 8:38 AM REAL ESTATE MARKETING COORDINATOR Pulse 95 01/30/2022 8:38 AM REAL ESTATE MARKETING COORDINATOR Temperature 36.5 C (97.7 F) 01/30/2022 8:38 AM REAL ESTATE MARKETING COORDINATOR Respiratory Rate 20 01/30/2022 8:38 AM REAL ESTATE MARKETING COORDINATOR Oxygen Saturation 97% 01/30/2022 8:38 AM REAL ESTATE MARKETING COORDINATOR Inhaled Oxygen Concentration - - Weight 129.3 kg (285 lb) 01/30/2022 8:38 AM REAL ESTATE MARKETING COORDINATOR Height - - Body Mass Index - - Plan of Treatment Health Maintenance Due Date Last Done Comments Hepatitis C Virus (HCV) Screening 1960 TdaP Immunization 1960 Cologuard 2005 Colonoscopy 2005 Colorectal Cancer Screening 2005 Immunochemical Fecal Occult Blood 2005 Pneumococcal Immunization (5 0+ years) (1 of 1 - PCV) 2010 Zoster Immunization (1 of 2) 2010 Influenza Immunization (#1) 2025 SARS-COV-2 Immunization (3 - 2024- season) 2025 05/09/2021, 04/18/2021 Respiratory Syncytial Virus (RSV) Immunization (Adult) (1 - 1-dose 75+ series) 2035 Hepatitis B Immunization Aged Out No longer eligible based on patient's age to complete this topic Human Papillomavirus (HPV) Immunization Aged Out No longer eligible b ased on patient's age to complete this topic Meningococcal Immunization (ACWY) Aged Out No longer eligible b ased on patient's age to complete this topic Rotavirus Immunization Aged Out No lo nger eligible based on patient's age to complete this topic Insurance [facility] Care Teams Certified Professional Controller Relationship Specialty Start Date End Date Jordy Sifuentes MD [address] [address] [phone] (work) PCP - General Family Medicine 01/30/22
--- OUTSIDE RECORDS SUMMARY | 2025-09-23 14:15 | XMS_ITS | Clinical Summary ---
Author Organization [facility] Address [address] [place] [address] Care Team Providers Care Transformer Stock Clerk Name Role Phone Unavailable Primary Care Provider Unavailabl e Source Comments [facility],non-owned Affiliates and Associated Physician Practices is amultiple site organization consisting of ambulatory clinics and hospital sitesin [place], [place], [place] and [place]. This disclosure is being madepursuant to the Care Everywhere program and may not contain all information available regarding this patient. Last updated 18.[employer] [facility] Allergies No known active allergies Medications * [...] on file Legal Sex Male 5:52 AM IMMUNOPATHOLOGIST Gender Identity Not on file Sexual Orientation [...] patient's age to complete this topic Insurance [facility]
--- OUTSIDE RECORDS SUMMARY | 2025-09-23 14:15 | XMS_ITS | Clinical Summary ---
Author Organization [facility] Address [address] [place] [address] Phone Care Team Providers Care Junior Systems Analyst Name Role Phone Jordy Sifuentes MD Primary Care Provider [phone] [phone] Allergies Active Allergy Reactions Criticality Noted Date [...] Comments Blood Pressure 144/72 01/30/2022 8:38 AM FORENSIC CHEMIST Pulse 95 01/30/2022 8:38 AM FORENSIC CHEMIST Temperature 36.5 C (97.7 F) 01/30/2022 8:38 AM FORENSIC CHEMIST Respiratory Rate 20 01/30/2022 8:38 AM FORENSIC CHEMIST Oxygen Saturation 97% 01/30/2022 8:38 AM FORENSIC CHEMIST Inhaled Oxygen Concentration - - Weight 129.3 kg (285 lb) 01/30/2022 8:38 AM FORENSIC CHEMIST Height - - Body Mass Index - [...] patient's age to complete this topic Insurance [facility] Care Teams Junior Systems Analyst Relationship Specialty Start Date End Date Jordy Sifuentes MD [address] [address] [phone] (work) PCP - General Family Medicine 01/30/22
--- OUTSIDE RECORDS SUMMARY | 2025-09-23 14:15 | XMS_ITS | Clinical Summary ---
Author Organization [facility] [address] [facility] Address [address] [place] [address] Care Team Providers Care Client Relation Specialist Name Role Phone Jordy Sifuentes MD Primary Care Provider [phone] Robert Ba MD Unavailable [phone]- [phone] Allergies Active Allergy Reactions Criticality Noted Date [...] drink = 0.6 oz pur e alcohol) [employer] Answer Date Recorded In the past 12 months has [employer], gas, oil, or water [employer] threatened to shut off services in your home? No 08/01/2024 Social Connection and Isolation Panel Answer Date Recorded In a typical week, how many times do you talk on the phone with family, friends, or neighbors? More than three times a week 08/01/2024 How often do you get togethe r with friends or relatives? More than three times a week 08/01/2024 How often do you attend [facility] or voodoo services? Never 08/01/2024 Do you belong to any clubs o r organizations such as buddhism groups, unions, fraternal or athletic groups, or [...] any time in the past 12 m [facility], were you homeless or living in a [facility] (including now)? No 08/01/2024 Personal Safety Answer Date Recorded Have you ever been in or are you currently in a harmful physical or emotional relationship or is someone making you feel afraid or unsafe? 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 Gender Identity Not on file Sexual Orientation Not on file Obstetrics History Last Filed Vital Signs Vital Sign Reading Time Taken Comments Blood Pressure 138/78 01/11/2025 8:10 AM AMERICAN STUDIES PROFESSOR Pulse 105 01/11/2025 8:10 AM AMERICAN STUDIES PROFESSOR Temperature 36.9 C (98.4 F) 01/11/2025 8:10 AM AMERICAN STUDIES PROFESSOR Respiratory Rate 18 01/11/2025 8:10 AM AMERICAN STUDIES PROFESSOR Oxygen Saturation 97% 01/11/2025 8:10 AM AMERICAN STUDIES PROFESSOR Inhaled Oxygen Concentration - - Weight 122.9 kg (271 lb) 01/11/2025 8:10 AM AMERICAN STUDIES PROFESSOR Height 180.3 cm (5' 11) 01/11/2025 8:10 AM AMERICAN STUDIES PROFESSOR Body Mass Index 37.8 01/11/2025 8:10 AM AMERICAN STUDIES PROFESSOR Plan of Treatment Health Maintenance Due Date Last Done Comments Colon Cancer Screening-Colonoscopy 1960 Depression Screening 1960 Hepatitis C Screening 1960 Prostate Cancer Screening-PSA 1960 DTaP/Tdap/Td Vaccine (1 - Tdap) 1971 Hepatitis B Screening 1978 Pneumococcal vaccine 65+ (1 of 1 - PCV) 2010 Zoster Vaccine (1 of 2) 2010 Well Visit 65+ 2025 Covid-19 Vaccine ( - season) 2025, 04/18/2021 Influenza Vaccine (#1) 2025 Fall Risk Assessment 08/02/2025 08/02/2024 Insurance [facility] [employer] ID [facility] CHO[facility]US [facility] Address: [address] [place] [address] [facility] UHC CHOICE [facility]US [facility] H[facility]/PPO Address: [address] [place] [address] Advance Directives For more information, please contact: [phone] * Full Code (Latest Code Status on File) Date Activated Date Inactivated Comments 07/30/2024 4:47 PM 08/02/2024 7:03 PM Care Teams Client Relation Specialist Relationship Specialty Start Date End Date Jordy Sifuentes MD [address] [address] PCP - General Family Medicine 07/30/24 Robert Ba MD [address] [address] Consulting Physician Urology 08/02/24
== END 2025-09-23 14:18 | disposition home or self-care (01) ==
PROVIDERS: Emergency Provider Emergency Medicine; PCP Family Medicine
DX: S20.211A Contusion of right front wall of thorax, initial encounter (principal); I10 Essential (primary) hypertension; E78.2 Mixed hyperlipidemia; Z86.16 Personal history of COVID-19; Z85.528 Personal history of other malignant neoplasm of kidney; Z90.5 Acquired absence of kidney; Q43.3 Congenital malformations of intestinal fixation; M18.9 Osteoarthritis of first carpometacarpal joint, unspecified; M19.041 Primary osteoarthritis, right hand; W18.30XA Fall on same level, unspecified, initial encounter
CPT/HCPCS: 71250; 73130; 74176; 96372; 99284; A9270; J1885

== ENCOUNTER 2025-10-28 11:56 | Emergency (ER) | payer OTHER, SELFPAY ==
[2025-10-28 12:07] VITALS: BP 139/96; PULSE 100; RESP 18; TEMP 36.3; O2SAT 97
[2025-10-28 12:38] LABS: Hematocrit 49.5 % (42.0-52.0); Hemoglobin 16.8 g/dL (14.0-18.0); Immature Granulocyte Percent A 0.2 % (0-0.5); Lymphocytes Absolute Auto 0.69 K/mm3 (0.9-3.2); Mean Corpuscular HGB Conc 33.9 g/dl (32-36); Mean Corpuscular Hemoglobin 30.3 pg (26-34); Mean Corpuscular Volume 89.4 fl (80-100); Nucleated Red Blood Cells Absolute Auto 0.000 K/mm3 (0.0-0.012); Nucleated Red Blood Cells Perc 0.0 % (0.0-0.2); Platelet Count Result 182 k/mm3 (150-375); Red Blood Count 5.54 M/mm3 (4.6-6.20); White Blood Count 4.1 K/mm3 (4.5-10.0)
[2025-10-28 12:42] LABS: Alanine Aminotransferase 36 U/L (6-50); Albumin Level 4.5 g/dL (3.5-5.1); Alkaline Phosphatase 90 U/L (38-126); Anion Gap 6 mmol/L (4-12); Aspartate Amino Transferase 38 U/L (17-59); Bilirubin,Total 0.9 mg/dL (0.2-1.3); Blood Urea Nitrogen 23 mg/dL (9-20); Calcium 9.2 mg/dL (8.4-10.2); Carbon Dioxide 26 mmol/L (22-30); Chloride 102 mmol/L (98-107); Estimated CRCL calculation 59 ml/min; Estimated Glomerular Filt Rate 45; Glucose 99 mg/dL (65-110); Potassium 4.3 mmol/L (3.4-5.0); Sodium 134 mmol/L (137-145); Total Protein 8.4 g/dL (6.3-8.2)
--- NOTE | 2025-10-28 12:52 | ED.GIBLEED ---
HPI - GI Bleed General Chief complaint: GI Bleed Stated complaint: black stools Time Seen by Provider: 10/28/25 12:23 Source: patient Mode of arrival: ambulatory Limitations: no limitations History of Present Illness HPI Narrative: Patient presents with report of black stools. He had a headache on Monday which is now gone. He was sick yesterday and had diarrhea and for this he took Kaopectate x2 doses. Patient states this has never happened before. He does not have any longstanding GI issues or follow with a senior accountant analyst. He does have a history of renal cancer and is status post left nephrectomy. Given this, does not take [id number] medication but he did take a leftover dose of meloxicam that he had. He also drank water and ate an granola bar , bread, and Skinny pop popcorn. He denies any current abdominal pain and actually was feeling much better. No nausea or vomiting. He is not on anticoagulation, steroids, or NSAIDs. No fevers but he did have chills on Monday. No recent travel and not on antibiotics recently. He did recently play with his 6-year-old grandson at [employer] who had been sick before the holiday and then mother and father became sick. After [employer] multiple other family members were noted to be sick with similar symptoms, presumed to be due to the child. He is only medications are lisinopril Claritin and a statin. Related Data Home Medications ?Medication ?Instructions ?Recorded ?Confirmed ?Last Taken ?Type multivit-min 67-folic acid 1 1 tablet PO DAILY 03/31/21 06/18/25 07/26/21 History mg-alpha lipoic 100 mg-lutein 1 mg tablet (Neovite) calcium polycarbophil 625 mg 1,250 mg PO DAILY 07/20/21 06/18/25 07/26/21 History tablet (FiberCon) Allergies Allergy/AdvReac Type Severity Reaction Status Date / Time methylprednisolone Allergy Severe Unknown Verified 10/28/25 13:30 Penicillins Allergy Other Verified 10/28/25 13:30 [facility] Past Medical History Medical History (Updated 10/29/25 @ 10:52 by Gaby Weber MD) Chronic low back pain with right-sided sciatica CT of the abdomen pelvis revealed degenerative disc disease at L4-L5 and L5-S1 on 03/10/2021. COVID-19 (08/09/21) fully vaccinated, exposure to son with COVID on 08/07/2021 and COVID positive 08/10/2021 Left shoulder pain Renal mass, left (~05/24/24) Left nephrectomy 07/30/2024. 4.9 cm heterogeneously enhancing mass suspicious for renal cell carcinoma, midpole left kidney on CT 05/24/2024, ER. MRI of the kidneys on 06/12/2024 with 5 cm mass left kidney consistent with renal cell carcinoma. Referral to urologist. Elevated PSA, less than 10 ng/ml (10/09/23) PSA elevated at 4.47 on 10/09/2023. PSA 4.3 on 05/28/2024. PSA elevated at 5.9 with 7% free PSA on 06/18/2025. Protein in urine (03/10/21) 1+ protein on urinalysis 03/10/2021. Trace protein on 10/09/2023. Urinalysis normal 05/28/2024. Urinalysis normal on 06/18/2025. Open follicle comedo (~2022) midline upper back Bilateral chronic knee pain Decreased hearing of right ear Tinnitus of right ear (~02/2023) Chronic left hip pain X-ray of both hips and pelvis unremarkable 04/19/2023. Acute non-recurrent maxillary sinusitis Obesity (BMI 30-39.9) Seasonal allergic rhinitis Elevated high sensitivity C-reactive protein elevated at 6.4 on 08/23/2022. Chronic pain of right hip X-ray of both hips and pelvis was normal 04/19/2023. BMI 38.0-38.9,adult COVID-19 (~11/23/21) tested positive 11/28/2021 2nd episode of COVID Epigastric abdominal pain Dysphagia (~07/08/21) BMI 37.0-37.9, adult Eosinophilia Gastroenteritis Diarrhea Chronic neck pain X-ray of the cervical spine on 04/19/2023 revealed [id number] degenerative spondylosis and facet arthritis worse at C4-C5 and C5-C6. Testicular pain, left Colon cancer screening Normal colonoscopy 04/08/2021 for evaluation of diarrhea Encounter for prostate cancer screening PSA 3.1 on 07/07/2021. PSA 3.05 on 08/23/2022. PSA elevated at 4.47 on 10/09/2023. BMI 39.0-39.9,adult Mixed hyperlipidemia total cholesterol 211, triglycerides 240, HDL 50, LDL 122 on 07/07/2021. total cholesterol 180, HDL 45, triglycerides 137, LDL 110 On 08/23/2022. Cholesterol 139, triglycerides 91, HDL 44, LDL 78 with ratio of 3.2 on 10/09/2023. cholesterol 210, triglycerides 163, HDL 48, LDL 132 with ratio 4.4 on 06/18/2025. Essential (primary) hypertension Surgical History Surgical History History of kidney removal Left, Hx kidney cancer H/O hernia repair (~04/13/15) Family History Family History Mother Family history of chronic obstructive pulmonary disease Diabetes mellitus Father Carcinoma of colon Family history of malignant neoplasm of esophagus Sibling , 47 y/o Brain aneurysm Other Family history of coronary artery disease Social History Social History Smoking status: Never smoker Alcohol intake: current Drinks per week: 4 Alcohol use details: Beer Substance use: former Substance use type: marijuana Lack of Transportation: No Lack of Food: Never True Current Housing: I Have Housing Concerned About Future Housing: No Difficulty Paying Gas/Electric Bills: No Difficulty Paying for Meds: No Currently Unemployed: No Education: High School Diploma/GED Difficulty w/ Childcare or Family Care: No Living arrangements: alone Spiritual care concerns: No Exam Narrative: GENERAL: Well-appearing, well-nourished, and in no acute distress. HEAD: Normocephalic, atraumatic. EYES: Non injected, non icteric ENT: Nares clear, no rhinorrhea or epistaxis. Gross auditory acuity intact. NECK: Supple. No meningismus. CHEST: Speaking in full sentences. No respiratory distress. HEART: Regular rate and rhythm. . ABDOMEN: Soft, nondistended. No rigidity or guarding. Not peritoneal EXTREMITIES: Normal range of motion. No lower extremity edema. SKIN: Warm, dry, no rash. PRITI: Normal rectal tone. Black/dark stool on gloved finger but FOBT/guiaic negative x2 windows on bedside assay NEURO: No focal deficits. Alert and oriented. Answering questions. Following commands. Normal speech without aphasia or dysarthria. PSYCH: Normal mood and affect. Course Vital Signs Vital signs: Vital Signs Temperature 97.3 F L 10/28/25 12:07 Pulse Rate 100 10/28/25 12:07 Respiratory Rate 18 10/28/25 12:07 Blood Pressure 139/96 H 10/28/25 12:07 Pulse Oximetry 97 10/28/25 12:07 Oxygen Delivery Room Air 10/28/25 12:07 Temperature 97.3 F L 10/28/25 12:07 Pulse Rate 79 10/28/25 14:10 Respiratory Rate 20 10/28/25 14:10 Blood Pressure 128/89 10/28/25 14:10 Pulse Oximetry 98 10/28/25 14:10 Oxygen Delivery Room Air 10/28/25 12:07 MDM MDM Narrative Medical decision making narrative: Patient presents with report of black stools. He had headache on Monday which is now gone. He was sick and had diarrhea yesterday and for this he took 2 episodes of Kaopectate. The patient is actually much better today but became concerned by the color of his stools and Googling this. Multiple family members were sick after Thanks; notably patient's grandson and grandson's parents were sick around this time. In the emergency department he is afebrile with vital signs that show hypertension, mild. I suspect his black stools are a direct medication side effect from the bismuth subsalicylate. CBC shows a mild leukopenia which is new but otherwise patient is not anemic. Considered obtaining CT scan however this does not seem necessary as patient otherwise asymptomatic at this time. FOBT/guiaic negative (although considered the fact that false positives can occur with bismuth) Similarly, 4 hr H/H repeat ordered however there is low suspicion that this represents true melena/GI bleed. I highly suspect medication side effect. Cr has ranged from 0.9 - 1.4. Suspect some of the higher range to be previous MARCI though can not exclude baseline CKD. However, I suspect MARCI again today (though possibly MARCI on CKD). 1L IV fluids ordered. Mild acute hyponatremia but only a drop of 4mEq from previous. Viral swab negative. Urinalysis with microscopic hematuria however patient is without any symptoms including no abdominal pain back/flank pain. For this reason, reasonable for outpatient follow up. Patient stable for discharge. Differential Diagnosis Differential Diagnosis: Differential Diagnostic considerations for dark stools include GI bleeding (PUD, varices, diverticular bleed, ischemic colitis, Meckel?s diverticulum, AV malformation, radiation colitis, infectious colitis, inflammatory colitis, hemorrhoids, Mora-Arellano syndrome, gastrointestinal hemorrhage, melena, anal fissure). Considered coagulopathy, medication side effect. ? Medical Records I have reviewed the following patient records and this information was taken into consideration when formulating the assessment and plan.: previous labs Lab Data MDM Lab Attestation statement: I personally reviewed the patient's lab results. 10/28/25 12:10/28/25 12: Labs: Lab Results 10/28/25 10/28/25 10/28/25 Range/Units 12: 12:58 13:20 WBC 4.1 L (4.5-10.0) K/mm3 RBC 5.54 (4.6-6.20) M/mm3 Hgb 16.8 (14.0-18.0) g/dL Hct 49.5 (42.0-52.0) % MCV 89.4 (80-100) fl MCH 30.3 (26-34) pg MCHC 33.9 (32-36) g/dl RDW 12.1 (11.5-14.5) % Plt Count 182 (150-375) k/mm3 MPV 10.5 H (7.4-10.4) fl Immature Gran % (Auto) 0.2 (0-0.5) % Neut % (Auto) 62.8 (45.5-73.1) % Lymph % (Auto) 16.9 L (18.3-44.2) % [place] % (Auto) 13.5 H (2.6-8.5) % Eos % (Auto) 6.1 H (0-4.4) % Baso % (Auto) 0.5 (0.2-1.2) % Lymph # (Auto) 0.69 L (0.9-3.2) K/mm3 [place] # (Auto) 0.6 (0.1-0.6) K/mm3 Eos # (Auto) 0.3 (0-0.3) K/mm3 Baso # (Auto) 0.0 (0.0-0.1) K/mm3 Abs Immat Gran (auto) 0.01 (0.00-0.031) K/mm3 Absolute Neuts (auto) 2.6 (1.3-6.7) K/mm3 Absolute Nucleated RBC 0.000 (0.0-0.012) K/mm3 Nucleated RBC % 0.0 (0.0-0.2) % PT 13.3 (11.1-14.7) Seconds INR 1.0 APTT 28.4 (22.3-36.8) Seconds Sodium 134 L (137-145) mmol/L Potassium 4.3 (3.4-5.0) mmol/L Chloride 102 (98-107) mmol/L Carbon Dioxide 26 (22-30) mmol/L Anion Gap 6 (4-12) mmol/L BUN 23 H (9-20) mg/dL Creatinine 1.57 H (0.7-1.3) mg/dL Estim Creat Clear Calc 59 ml/min Estimated GFR 45 L (59 - ) Glucose 99 (65-110) mg/dL Calcium 9.2 (8.4-10.2) mg/dL Total Bilirubin 0.9 (0.2-1.3) mg/dL AST 38 (17-59) U/L ALT 36 (6-50) U/L Alkaline Phosphatase 90 (38-126) U/L Total Protein 8.4 H (6.3-8.2) g/dL Albumin 4.5 (3.5-5.1) g/dL Urine Color Dark yellow (Yellow) Urine Appearance Cloudy H (Clear) Urine pH 5.5 (5.0-9.0) Ur Specific [place] 1.020 (1.001-1.035) Urine Protein 2+ H (Negative) mg/dL Urine Glucose (UA) Negative (Negative) mg/dL Urine Ketones Trace H (Negative) mg/dL Ur Blood (Man) 2+ H (Negative) Urine Nitrate Negative (Negative) Urine Bilirubin Negative (Negative) Urine Urobilinogen 1.0 (<2.0) mg/dL Leukocyte Esterase Rfl Negative (Negative) KARINA/UL Urine RBC 11-20 H (0-2) /hpf Urine WBC 0-5 (0-3) /hpf Ur Squamous Epith Cells Few (Few) /hpf Urine Bacteria None seen /hpf Urine Casts >20 Granular Casts Present (None) /lpf Influenza A (RT-PCR) Negative (Negative) Influenza B (RT-PCR) Negative (Negative) RSV (RT-PCR) Negative (Negative) SARS-CoV-2 RNA (RT-PCR) Negative (Negative) Blood Type O Negative Antibody Screen Negative Discharge Plan Discharge Clinical Impression: Leukopenia, MARCI (acute kidney injury), Dark stools, Medication side effect, Acute hyponatremia, Microscopic hematuria Patient Disposition: Home Condition: Stable Instructions: Antibiotic Form, Acute Kidney Injury (DC), Hyponatremia (ED), Hematuria (ED) Additional Instructions: Your Creatinine was 1.57. You received 1L IV fluids and I suspect this was due to a degree of dehydration/volume losses with the recent diarrhea. Follow up with your primary care physician for a repeat lab draw. As we discussed, I suspect your dark stools are a medication side effect from the Kaopectate. Your symptoms certainly sound viral although you tested negative for COVID, influenza a, influenza B, and RSV. You also had some red blood cells in your urine which is called microscopic hematuria. Your PCP will likely order another urinalysis outpatient to see if this persists/needs further work up. Continue taking your medications as prescribed. Return to the emergency department with any new or worsening symptoms. If you need a GI referral, the name of one is listed below. If you need a urologist, the name of one is listed below. Patient Language: Faroese Prescriptions: No Action lisinopril 40 mg tablet 40 mg PO DAILY Qty: 90 3RF loratadine [Claritin] 10 mg tablet 10 mg PO . q.a.m. PRN (Reason: allergic symptoms) Qty: 90 3RF Neovite 1-100-1 mg Tablet 1 tablet PO DAILY calcium polycarbophil [FiberCon] 625 mg Tablet 1,250 mg PO DAILY hydrocodone-acetaminophen 5-325 mg tablet 1 tablet PO Q12H PRN (Reason: pain) Qty: 14 0RF cyclobenzaprine 10 mg tablet 10 mg PO BID PRN (Reason: muscle spasm) Qty: 14 0RF meloxicam 15 mg tablet 15 mg PO DAILY PRN (Reason: pain) Qty: 30 11RF atorvastatin [Lipitor] 40 mg tablet 40 mg PO QHS Qty: 30 11RF Follow-up/Referrals: Jordy Sifuentes MD [Primary Care Provider, Family Practice] Kvng Al MD [Physician, Urology] Siva Connell MD [Physician, Gastroenterology] Stand Alone Forms: Work/School Release IP Time of Disposition: 14:03
--- OUTSIDE RECORDS SUMMARY | 2025-10-28 12:52 | XMS_ITS | Clinical Summary ---
Author Organization [email or web address] Address [address] [place] [address] Care Team Providers Care Crime Lab Analyst Name Role Phone Unavailable Primary Care Provider Unavailabl e Source Comments [facility],non-owned Affiliates and Associated Physician Practices is amultiple site organization consisting of ambulatory clinics and hospital sitesin [place], [place], [place] and [place]. This disclosure is being madepursuant to the Care Everywhere program and may not contain all information available regarding this patient. 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
--- OUTSIDE RECORDS SUMMARY | 2025-10-28 12:52 | XMS_ITS | Clinical Summary ---
Author Organization [facility] Address [address] [place] [address] Phone Care Team Providers Care Cook Taco Name Role Phone Jordy Sifuentes MD Primary Care Provider [phone] [phone] Allergies Active Allergy Reactions Criticality Noted Date [...] Comments Blood Pressure 144/72 01/30/2022 8:38 AM ALTERATION MANAGER Pulse 95 01/30/2022 8:38 AM ALTERATION MANAGER Temperature 36.5 C (97.7 F) 01/30/2022 8:38 AM ALTERATION MANAGER Respiratory Rate 20 01/30/2022 8:38 AM ALTERATION MANAGER Oxygen Saturation 97% 01/30/2022 8:38 AM ALTERATION MANAGER Inhaled Oxygen Concentration - - Weight 129.3 kg (285 lb) 01/30/2022 8:38 AM ALTERATION MANAGER Height - - Body Mass Index - [...] patient's age to complete this topic Insurance [facility] Care Teams Cook Taco Relationship Specialty Start Date End Date Jordy Sifuentes MD [address] [address] [phone] (work) PCP - General Family Medicine 01/30/22
--- OUTSIDE RECORDS SUMMARY | 2025-10-28 12:52 | XMS_ITS | Clinical Summary ---
Author Organization [facility] [address] [facility] Address [address] [facility] [address] Care Team Providers Care General Maintenance Helper Name Role Phone Jordy Sifuentes MD Primary Care Provider [phone] Robert Ba MD Unavailable [phone]- [phone] Allergies Active Allergy Reactions Criticality Noted Date [...] drink = 0.6 oz pur e alcohol) [employer] Answer Date Recorded In the past 12 months has [employer], gas, oil, or water [employer] threatened to shut off services in your [...] often do you attend [facility] or confucianist services? Never 08/01/2024 Do you belong to any clubs o r organizations such as voodoo groups, unions, fraternal or athletic groups, or [...] any time in the past 12 m [facility], were you homeless or living in a assisted (including now)? No 08/01/2024 Personal Safety Answer Date Recorded Have you ever been in or are you currently in a harmful physical or emotional relationship or is someone making you feel afraid or unsafe? Denies 07/30/2024 Sex and Gender Information Value Date Recorded Sex Assigned at Not on file Legal Sex Male 11:31 AM TAXATION CONSULTANT Gender Identity Not on file Sexual Orientation Not on file Last Filed Vital Signs Vital Sign Reading Time Taken Comments Blood Pressure 138/78 01/11/2025 8:10 AM TAXATION CONSULTANT Pulse 105 01/11/2025 8:10 AM TAXATION CONSULTANT Temperature 36.9 C (98.4 F) 01/11/2025 8:10 AM TAXATION CONSULTANT Respiratory Rate 18 01/11/2025 8:10 AM TAXATION CONSULTANT Oxygen Saturation 97% 01/11/2025 8:10 AM TAXATION CONSULTANT Inhaled Oxygen Concentration - - Weight 122.9 kg (271 lb) 01/11/2025 8:10 AM TAXATION CONSULTANT Height 180.3 cm (5' 11) 01/11/2025 8:10 AM TAXATION CONSULTANT Body Mass Index 37.8 01/11/2025 8:10 AM TAXATION CONSULTANT Plan of Treatment Health Maintenance Due Date Last Done Comments Colon Cancer Screening-Colonoscopy 1960 Depression Screening 1960 Hepatitis C Screening 1960 Prostate Cancer Screening-PSA 1960 DTaP/Tdap/Td Vaccine (1 - Tdap) 1971 Hepatitis B Screening 1978 Pneumococcal vaccine 65+ (1 of 1 - PCV) 2010 Zoster Vaccine (1 of 2) 2010 Well Visit 65+ 2025 Covid-19 Vaccine (3 - season) 2025, 04/18/2021 Influenza Vaccine (#1) 2025 Fall Risk Assessment 08/02/2025 08/02/2024 Insurance [facility] [employer] [place] [facility]ICE [facility] PLUS Advance Directives For more information, please contact: [phone] * Full Code (Latest Code Status on File) Date Activated Date Inactivated Comments 07/30/2024 4:47 PM 08/02/2024 7:03 PM Care Teams General Maintenance Helper Relationship Specialty Start Date End Date Jordy Sifuentes MD [address] [address] PCP - General Family Medicine 07/30/24 Robert Ba MD [address] [address] Consulting Physician Urology 08/02/24
[2025-10-28 12:57] LABS: INR 1.0; Prothrombin Time 13.3 Seconds (11.1-14.7)
[2025-10-28 12:58] LABS: Partial Thromboplastin Time 28.4 Seconds (22.3-36.8)
[2025-10-28] MEDS: SODIUM CHLORIDE 0.9% IV 1,000 ML 999 ML IV CONT (13:12)
[2025-10-28 13:22] VITALS: BP 130/85; PULSE 88; RESP 13; O2SAT 98
[2025-10-28 13:34] LABS: Add Urine Microscopic? YES; Appearance Urine Cloudy (Clear); Glucose Urine UA Negative (Negative); Leukocyte Esterase Ur Negative LEU/UL (Negative); Nitrate Urine Negative (Negative); Non Pathogenic Casts >20; Specific Grav Ur 1.020 (1.001-1.035)
[2025-10-28 13:40] LABS: Influenza A QL RT-PCR Negative (Negative); Influenza B QL RT-PCR Negative (Negative); RSV RNA, RT-PCR Negative (Negative); SARS-CoV-2 RNA PCR Negative (Negative)
[2025-10-28 13:53] VITALS: BP 117/81; PULSE 72
[2025-10-28 13:56] VITALS: BP 123/85; PULSE 87
[2025-10-28 13:58] VITALS: BP 128/89; PULSE 89
[2025-10-28 14:10] VITALS: BP 128/89; PULSE 79; RESP 20; O2SAT 98
== END 2025-10-28 14:12 | disposition home or self-care (01) ==
PROVIDERS: Emergency Medicine; Emergency Provider Student in an Organized Health Care Education/Training Program; PCP Family Medicine
DX: N17.9 Acute kidney failure, unspecified (principal); R19.5 Other fecal abnormalities; D72.819 Decreased white blood cell count, unspecified; E87.1 Hypo-osmolality and hyponatremia; R31.29 Other microscopic hematuria; T47.6X5A Adverse effect of antidiarrheal drugs, initial encounter; Z20.822 Contact with and (suspected) exposure to COVID-19; I10 Essential (primary) hypertension; E78.2 Mixed hyperlipidemia; Z85.528 Personal history of other malignant neoplasm of kidney; Z86.16 Personal history of COVID-19; Z90.5 Acquired absence of kidney; Z79.899 Other long term (current) drug therapy
CPT/HCPCS: 36415; 80053; 81001; 85025; 85610; 85730; 86850; 86900; 86901; 87637; 96360; 99283; J7030